=== PATIENT | male | born 1995 | race African-American/Black ===

== ENCOUNTER 2019-02-27 17:08 | Emergency (ER) | payer SELFPAY ==
--- OUTSIDE RECORDS SUMMARY | 2019-02-27 17:10 | XMS REPORT ---
:1995 [facility] Address [address] [place] [address] Care Team Providers Name Role Phone UNKNOWN, REFFERING Primary Care Provider Unavailable JOSELITO GAMEZ M.D. Unavailable Unavailable Problems This patient has no known problems. Allergies, Adverse Reactions, Alerts This patient has no known allergies or adverse reactions. Medications This patient has no known medications. Results Test Description Test Time Test Comments Text Results Atomic Results Result Comments Urinalysis Complete 2017-06-28 23:54:00 Test Item Value Reference Range Comments Color (test code=COLOR) Yellow Yellow,Straw,Pl yellow Clarity (test code=CLAR) Clear Clear Specific [place] (test code=SPGR) 1.026 1.001-1.035 pH (test code=PH) 5.0 5.0-9.0 Ketone (test code=KET) 5 mg/dL Negative Glucose (test code=GLUCUR) Negative mg/dL Negative Protein (test code=PROT) Negative mg/dL Negative Bilirubin (test code=BILI) Negative mg/dL Negative Occult Blood (test code=UDOB) Mod to Large Negative Urobilinogen (test code=UROB) 0.2 mg/dL 0.2-1.0 Nitrite (test code=NIT) Negative Negative Leuk Esterase (test code=LEUK) Negative Negative Micros Exam (test code=MEXAM) Indicated Epithelial Cells (test code=EPI) None /LPF 0-30 WBC, Urine (test code=UWBC) 0-1 /HPF 0-5 RBC, Urine (test code=URBC) 0-3 /HPF 0-5 Bacteria (test code=BACT) None /HPF [id number] 23:52:00 Test Item Value Reference Range Comments Amphetamine (test code=AMPH) POSITIVE Negative For diagnostic purposes only, positive results should always be assessedin conjunctionwith the patient's medical history,clinical examination and otherfindings.To fulfill legal requirements, a more specific alternate chemical methodmust be used inorder to obtain a Confirmed analytical result. GC/MS is the preferred confirmatory method. Barbiturates (test code=DELMER) Negative Negative Benzodiazepine (test Negative Negative code=VALENTINO) Cocaine (test code=COCA) POSITIVE Negative Methadone (test code=MTHD) Negative Negative Opiates (test code=OPIA) Negative Negative PCP (test code=PCP) Negative Negative Propoxyphene (test Negative Negative code=PROPOX) THC (test code=THC) POSITIVE Negative Alcohol, Urine (test <0.01 g/dL 0.00-0.01 code=ETOHU) Comprehensive Metabolic [id number] 23:52:00 Test Item Value Reference Range Comments Sodium (test code=NA) 142 mmol/L 135-145 Potassium (test code=K) 4.2 mmol/L 3.5-5.1 Chloride (test code=CL) 105 mmol/L 98-105 Carbon Dioxide (test 25 mmol/L 22-29 code=CO2) Glucose (test code=GLU) 100 mg/dL 70-115 Blood Urea Nitrogen 15 mg/dL 6-20 (test code=BUN) Creatinine (test 1.1 mg/dL 0.7-1.2 code=CREAT) Calcium (test code=CA) 9.6 mg/dL 8.3-10.5 Prot Total (test 6.7 g/dL 6.4-8.3 code=TP) Albumin (test code=ALB) 4.5 g/dL 3.5-5.2 A/G Ratio (test 2.0 Ratio code=AGRATIO) Globulin (test 2.2 2.9-3.1 code=GLOB) Bili Total (test 0.2 mg/dL 0.1-0.9 code=TBIL) Alk Phos (test 52 U/L 40-129 code=APHOS) AST (test code=AST) 32 U/L 1-40 ALT (test code=ALT) 20 U/L 1-41 BUN/Creatinine Ratio 13.6 (test code=BCRATIO) Anion Gap (test 12 mmol/L 7-16 code=AGAP) Estimated GFR (test >60 mL/min/1.73m2 eGFR (estimated Glomerular code=GFR) Filtration Rate) is an estimated value,calculated from the patient's serum creatinine using the MDRD equation.It is NOT the patient's actual GFR. The eGFR provides a more clinicallyuseful measure of kidney disease than serum creatinine alone.This calculation takes sex and race into account, if the informationis provided. If the race is not provided, and the patient isAfrican-Georgian, multiply by 1.212. If sex is not provided, and thepatient is female, multiply by 0.742. Results for patients <18 years ofage have not been validated by the MDRD study and should be interpretedwith caution.eGFR Result Interpretation:eGFR > or=60 is in the Normal RangeeGFR < 60 may mean kidney diseaseeGFR < 15 may mean kidney failureRanges recommended by the National Kidney Foundation,http://nkdep.nih .gov CBC with [id number] 23:40:00 Test Item Value Reference Range Comments WBC (test code=WBC) 9.4 K/cumm 4.4-10.5 RBC (test code=RBC) 4.66 M/cumm 4.10-5.70 Hemoglobin (test code=HGB) 14.6 gm/dL 13.4-17.4 Hematocrit (test code=HCT) 44.2 % 38.7-52.0 MCV (test code=MCV) 94.8 fL 80-100 MCH (test code=MCH) 31.4 pg 27.0-32.5 MCHC (test code=MCHC) 33.1 g/dL 32.0-37.5 RDW (test code=RDW) 12.1 % 11.5-14.5 Platelet Count (test code=PLTCT) 303 K/cumm 140-440 MPV (test code=MPV) 7.4 fL Diff Method (test code=DIFFM) Auto Neutrophil (test code=NEUT) 54.8 % 36-70 Lymphocyte (test code=LYMPH) 35.6 % 12-44 Monocyte (test code=MONO) 7.1 % 0-11 Eosinophil (test code=EOS) 2.2 % 0-7 Basophil (test code=BASO) 0.4 % 0-2 Neutro Abs (test code=ANEUT) 5.1 K/cumm 1.6-7.4 Lymph Abs (test code=ALYMPH) 3.3 K/cumm 0.5-4.6 [place] Abs (test code=AMONO) 0.7 K/cumm 0.0-1.2 Eos Abs (test code=AEOS) 0.20 K/cumm 0.00-0.74 Baso Abs (test code=ABASO) 0.0 K/cumm 0.00-0.21
--- NOTE | 2019-02-27 19:11 | ER ---
Nurse's Notes [facility] Name: Sal Davies Age: 23 yrs Sex: Male : 1995 Arrival Date: 02/27/2019 Time: 17:10 Bed DIS1 Private MD: Diagnosis: Influenza due to certain identified influenza viruses Presentation: 02/27 17:14 Presenting complaint: Patient states: Flu like symptoms for 4 days. Care prior to aj arrival: None. 17:14 Acuity: ASHLEIGH 4 aj 18:42 Transition of care: patient was not received from another setting of care. Onset of aj1 symptoms was February 2019. Risk Assessment: Do you want to hurt yourself or someone else? Patient reports no desire to harm self or others. Initial Sepsis Screen: Does the patient meet any 2 criteria? HR > 90 bpm. No. Patient's initial sepsis screen is negative. Does the patient have a suspected source of infection? Yes: Productive cough/pneumonia. 18:42 Method Of Arrival: Ambulatory aj1 Triage Assessment: 17:14 General: Appears in no apparent distress. comfortable, Behavior is calm, cooperative, aj appropriate for age. Pain: Denies pain. EENT: Reports nasal congestion nasal discharge. Respiratory: Reports cough that is. Historical: - Allergies: 17:14 No Known Allergies; aj - Immunization history:: Adult Immunizations up to date. - Social history:: Smoking status: Patient/guardian denies using tobacco. - Ebola Screening: : Patient denies travel to an Ebola-affected area in the 21 days before illness onset. Screenin:08 Abuse screen: Denies threats or abuse. Denies injuries from another. Nutritional aj1 screening: No deficits noted. Tuberculosis screening: No symptoms or risk factors identified. 19:29 Fall Risk None identified. ca1 Assessment: 18:08 General: Appears in no apparent distress. comfortable, Behavior is calm, cooperative, aj1 appropriate for age. Pain: Complains of pain in chest. Neuro: Level of Consciousness is awake, alert, obeys commands, Oriented to person, place, time, situation. Cardiovascular: Reports chest pain with cough Patient's skin is warm and dry. Respiratory: Reports cough that is productive, Airway is patent Respiratory effort is even, unlabored, Respiratory pattern is regular, symmetrical, Breath sounds are clear bilaterally. GI: No signs and/or symptoms were reported involving the gastrointestinal system. : No signs and/or symptoms were reported regarding the genitourinary system. EENT: Reports nasal congestion nasal discharge sore throat. Derm: Skin is pink, warm \T\ dry. normal. Musculoskeletal: No signs and/or symptoms reported regarding the musculoskeletal system. Circulation, motion, and sensation intact. 19:28 Reassessment: Patient appears in no apparent distress at this time. Patient is alert, ca1 oriented x 3, equal unlabored respirations, skin warm/dry/pink. Vital Signs: 17:14 BP 128 / 70; Pulse 96; Resp 19; Temp 97.8; Pulse Ox 98% on R/A; Weight 86.18 kg; Height aj 5 ft. 5 in. (165.10 cm); 18:08 BP 127 / 68; Pulse 102; Resp 18; Pulse Ox 99% on R/A; aj1 19:28 BP 126 / 65; Pulse 94; Resp 16 S; Temp 98.1(O); Pulse Ox 99% on R/A; ca1 17:14 Body Mass Index 31.62 (86.18 kg, 165.10 cm) ED Course: 17:10 Patient arrived in ED. as 17:14 Triage completed. aj 17:14 Arm band placed on left wrist. Patient placed in waiting room. 17:46 Dewey Seo PA is PHCP. [facility] 17:46 Martinez Goodwin MD is Attending Physician. [facility] 18:08 Alesia Olguin, RN is Primary Nurse. [facility] 18:08 Patient has correct armband on for positive identification. Bed in low position. Call [facility] light in reach. Side rails up X 1. 18:08 No provider procedures requiring assistance completed. aj1 18:37 Flu and/or RSV swab sent to lab. Strep swab sent to lab. lt1 18:37 Flu Sent. lt1 18:37 Strep Sent. lt1 19:29 Patient did not have IV access during this emergency room visit. ca1 Administered Medications: No medications were administered Outcome: 19:11 Discharge ordered by . [facility] 19:29 Discharged to home ambulatory, with significant other. ca1 19:29 Condition: stable 19:29 Discharge instructions given to patient, Instructed on discharge instructions, follow up and referral plans. medication usage. 19:29 Demonstrated understanding of instructions, follow-up care, medications, Prescriptions given X 1. 19:29 Patient left the ED. ca1 Signatures: Alesia Olguin RN RN aj1 Cindy Maher RN RN aj Dewey Seo PA PA jmm Martinez, Amelia as Acob, Cheryl RN RN ca1 Chantell, Meagan lt1
--- NOTE | 2019-02-27 19:12 | EDPHYS ---
Physician Documentation [facility] Name: Sal Davies Age: 23 yrs Sex: Male : 1995 Arrival Date: 02/27/2019 Time: 17:10 Bed DIS1 Private MD: ED Physician Martinez Goodwin HPI: 02/27 17:54 This 23 yrs old Black Male presents to ER via Ambulatory with complaints of Flu jmm Symptoms. 17:54 The patient or guardian reports cough. Onset: The symptoms/episode began/occurred jmm gradually, 2 day(s) ago. Modifying factors: The symptoms are alleviated by nothing. the symptoms are aggravated by nothing. Associated signs and symptoms: Pertinent positives: fever, sore throat, Pertinent negatives: chest pain, diarrhea, ear ache, nausea, vomiting. Historical: - Allergies: 17:14 No Known Allergies; aj - Immunization history:: Adult Immunizations up to date. - Social history:: Smoking status: Patient/guardian denies using tobacco. - Ebola Screening: : Patient denies travel to an Ebola-affected area in the 21 days before illness onset. ROS: 17:54 Constitutional: Positive for fever. jmm 17:54 ENT: Positive for sore throat. 17:54 Respiratory: Positive for cough. 17:54 All other systems are negative. Exam: 17:54 Constitutional: This is a well developed, well nourished patient who is awake, alert, jmm and in no acute distress. Head/Face: atraumatic. Eyes: EOMI, no conjunctival erythema appreciated 17:54 Chest/axilla: Normal chest wall appearance and motion. 17:54 ENT: TM's: are normal, Posterior pharynx: erythema, that is mild. 17:54 Cardiovascular: Rate: normal, Rhythm: regular. 17:54 Respiratory: the patient does not display signs of respiratory distress, Respirations: normal, Breath sounds: are clear throughout. 17:54 Abdomen/GI: Inspection: abdomen appears normal, Bowel sounds: normal, Palpation: abdomen is soft and non-tender, in all quadrants. 17:54 Back: pain, is absent. 17:54 Musculoskeletal/extremity: ROM: no acute changes. 17:54 Skin: Appearance: Color: normal in color. 17:54 Neuro: Orientation: is normal, Mentation: is normal, Memory: is normal. 17:54 Psych: Behavior/mood is pleasant, cooperative. Vital Signs: 17:14 BP 128 / 70; Pulse 96; Resp 19; Temp 97.8; Pulse Ox 98% on R/A; Weight 86.18 kg; Height aj 5 ft. 5 in. (165.10 cm); 18:08 BP 127 / 68; Pulse 102; Resp 18; Pulse Ox 99% on R/A; aj1 19:28 BP 126 / 65; Pulse 94; Resp 16 S; Temp 98.1(O); Pulse Ox 99% on R/A; ca1 17:14 Body Mass Index 31.62 (86.18 kg, 165.10 cm) aj MDM: 17:54 Patient medically screened. [facility] 19:09 Data reviewed: vital signs, nurses notes. Counseling: I had a detailed discussion with betty the patient and/or guardian regarding: the historical points, exam findings, and any diagnostic results supporting the discharge/admit diagnosis, lab results, the need for outpatient follow up, to return to the emergency department if symptoms worsen or persist or if there are any questions or concerns that arise at home. ED course: Patient is alert and non toxic in appearance in the ED. Patient is advised to follow up with pcp and otherwise given strict return precautions. Patient understood and agrees with the plan of care. . 02/27 18:02 Order name: Strep; Complete Time: 19:09 [facility] 02/27 18:02 Order name: Flu; Complete Time: 19:09 [facility] 02/27 19:07 Order name: Throat Culture EDMS Administered Medications: No medications were administered Disposition: 02/28 07:23 Co-signature as Attending Physician, Martinez Goodwin MD I agree with the assessment and kdr plan of care. Disposition: 02/27/19 19:11 Discharged to Home. Impression: Influenza due to certain identified influenza viruses. - Condition is Stable. - Discharge Instructions: Influenza, Adult. - Prescriptions for Tamiflu 75 mg Oral Capsule - take 1 tablet by ORAL route every 12 hours for 5 days; 10 tablet. - Medication Reconciliation Form, Thank You Letter, Antibiotic Education, Prescription Opioid Use, Work release form form. - Follow up: Private Physician; When: 1 - 2 days; Reason: Recheck today's complaints, Continuance of care, Re-evaluation by your physician. Signatures: Dispatcher [employer] EDAlesia Barrett RN RN aj1 Cindy Maher RN RN aj Martinez Goodwin MD MD kdr Mickail, Joel, PA PA jmm Acob, Cheryl, RN RN ca1 Corrections: (The following items were deleted from the chart) 02/27 19:29 19:11 02/27/2019 19:11 Discharged to Home. Impression: Influenza due to certain ca1 identified influenza viruses. Condition is Stable. Forms are Medication Reconciliation Form, Thank You Letter, Antibiotic Education, Prescription Opioid Use. Follow up: Private Physician; When: 1 - 2 days; Reason: Recheck today's complaints, Continuance of care, Re-evaluation by your physician. huong
[2019-02-27 21:26] VITALS: O2SAT 99
[2019-02-27 21:27] VITALS: BP 126/65; TEMP 98.1
== END 2019-02-27 19:29 | disposition home or self-care (01) ==
LOC: ER 17:08
DX: J10.1 Influenza due to other identified influenza virus with other respiratory manifestations (principal)
CPT/HCPCS: 87070; 87081; 87804; 99283

== ENCOUNTER 2019-04-23 15:32 | Emergency (ER) | payer SELFPAY ==
--- OUTSIDE RECORDS SUMMARY | 2019-04-23 15:35 | XMS REPORT ---
:1995 [facility] Address [address] [place] [address] Care Team Providers Name Role Phone UNKNOWN, [...] yellow Clarity (test code=CLAR) Clear Clear Specific [place] (test code=SPGR) 1.026 1.001-1.035 pH (test code=PH) [...] /HPF 0-5 Bacteria (test code=BACT) None /HPF [id number] 23:52:00 Test Item Value Reference Range Comments [...] (test <0.01 g/dL 0.00-0.01 code=ETOHU) Comprehensive Metabolic [id number] 23:52:00 Test Item Value Reference Range Comments [...] race is not provided, and the patient isAfrican-[place] Helenian, multiply by 1.212. If sex is not [...] the National Kidney Foundation,http://nkdep.nih .gov CBC with [id number] 23:40:00 Test Item Value Reference Range Comments [...] Lymph Abs (test code=ALYMPH) 3.3 K/cumm 0.5-4.6 [place] Abs (test code=AMONO) 0.7 K/cumm 0.0-1.2 Eos Abs (test code=AEOS) 0.20 K/cumm 0.00-0.74 Baso Abs (test code=ABASO) 0.0 K/cumm 0.00-0.21
[2019-04-23 16:00] LABS: Basophils % 0.6 % (0-1.3); Hematocrit 40.3 % (39.6-49.0); Lymphocytes % 25.7 % (15.3-44.8); MPV 7.7 fL (7.6-11.3); RBC Red Blood Cell Count 4.53 M/uL (4.33-5.43)
[2019-04-23 16:04] LABS: Protime INR 1.23
[2019-04-23 16:23] LABS: ALT/SGPT 31 U/L (12-78); AST/SGOT 20 U/L (15-37); Albumin 4.2 g/dL (3.4-5.0); Alkaline Phosphatase 56 U/L (45-117); BUN Blood Urea Nitrogen 16 mg/dL (7-18); Bicarbonate 25 mmol/L (21-32); Bilirubin Direct 0.2 mg/dL (0-0.2); Bilirubin Total 0.9 mg/dL (0.2-1.0); Glucose Level 91 mg/dL (74-106); Potassium 3.6 mmol/L (3.5-5.1); Protein, Total 7.6 g/dL (6.4-8.2); Sodium Level 143 mmol/L (136-145)
[2019-04-23 17:01] LABS: Troponin I < 0.02 ng/mL (0.0-0.045)
[2019-04-23 17:27] LABS: Barbiturates NEGATIVE (NEGATIVE); Benzodiazepines NEGATIVE (NEGATIVE); Cocaine POSITIVE (NEGATIVE); METHAMPHETAM POSITIVE (NEGATIVE); Methadone NEGATIVE (NEGATIVE); Opiates NEGATIVE (NEGATIVE); Phencyclidine NEGATIVE (NEGATIVE); THC Cannibis NEGATIVE (NEGATIVE)
[2019-04-23 20:07] LABS: Urine Blood 2+ (NEG); Urine Glucose NEGATIVE (NEG); Urine Protein 1+ (NEG); Urine Specific Gravity >1.030 (1.005-1.030)
--- NOTE | 2019-04-24 09:50 | EKG ---
Test Date: 2019-04-23 Test Time: 16:00:52 Network Systems Analyst: HONG MEASUREMENT RESULTS: Intervals: Rate: 77 TN: 150 QRSD: 92 QT: 374 QTc: 423 Avant: P: 23 TN: 150 QRS: 43 T: 17 INTERPRETIVE STATEMENTS: Normal sinus rhythm with sinus arrhythmia Minimal voltage criteria for LVH, may be normal variant Early repolarization Borderline ECG Compared to ECG 03/29/2017 17:02:20 Left ventricular hypertrophy now present Sinus tachycardia no longer present Electronically Signed On 04-24-19 09:50:16 CDT by Ryan Villa
--- NOTE | 2019-04-24 14:29 | EDPHYS ---
Physician Documentation [facility] Name: Sal Davies Age: 23 yrs Sex: Male : 1995 Arrival Date: 04/23/2019 Time: 15:41 Bed 17 Private MD: ED Physician Quoc Hopkins HPI: 04/23 16:00 This 23 yrs old Black Male presents to ER via EMS with complaints of Suicidal Ideation. cp 16:00 The patient presents to the emergency department with suicide ideation. Onset: The cp symptoms/episode began/occurred gradually. Past psychiatric history: Prior diagnosis: depression, Psychiatric medications include: none, the patient has had a prior suicide gesture, the patient has a previous inpatient psychiatric history, last year. Associated signs and symptoms: Pertinent positives; depression, substance abuse, suicide ideation, Pertinent negatives: abdominal pain, chest pain, delusions, fever, hallucinations, headache, palpitations, paranoia. Severity of symptoms: in the emergency department the symptoms are unchanged despite home interventions. Patient admits to using cocaine 2 days ago. Historical: - Allergies: 15:48 No Known Allergies; sv - PMHx: 15:48 Anxiety; Depression; sv - PSHx: 15:48 Appendectomy; sv - Immunization history:: Adult Immunizations up to date. - Social history:: Smoking status: Patient/guardian denies using tobacco, Patient uses alcohol, occasionally. street drugs, cocaine. - Ebola Screening: : No symptoms or risks identified at this time. ROS: 16:05 Constitutional: Negative for body aches, chills, fever, poor PO intake. cp 16:05 Eyes: Negative for injury, pain, redness, and discharge. cp 16:05 ENT: Negative for drainage from ear(s), ear pain, sore throat, difficulty swallowing, difficulty handling secretions. 16:05 Cardiovascular: Negative for chest pain, edema, palpitations. 16:05 Respiratory: Negative for shortness of breath, wheezing. 16:05 Abdomen/GI: Negative for abdominal pain, vomiting, diarrhea, constipation. 16:05 Back: Negative for pain at rest, pain with movement. 16:05 : Negative for urinary symptoms, hematuria, testicular pain 16:05 Neuro: Negative for altered mental status, dizziness, headache, weakness. 16:05 Psych: Positive for depression, suicidal ideation, Negative for auditory hallucinations, visual hallucinations, homicidal ideation. 16:05 All other systems are negative. Exam: 16:03 ECG was reviewed by the Attending Physician. cp 16:15 Constitutional: The patient appears in no acute distress, alert, awake, cp non-diaphoretic, non-toxic, well developed, well nourished. 16:15 Head/Face: Normocephalic, atraumatic. cp 16:15 Eyes: Periorbital structures: appear normal, Conjunctiva: normal, no exudate, no injection, Lids and lashes: appear normal, bilaterally. 16:15 ENT: External ear(s): are unremarkable, Nose: is normal, Mouth: is normal, Posterior pharynx: Airway: no evidence of obstruction, patent. 16:15 Neck: ROM/movement: is normal, is supple, without pain, no range of motions limitations, no nuchal rigidity. 16:15 Chest/axilla: Inspection: normal, Palpation: is normal, no crepitus, no tenderness. 16:15 Cardiovascular: Rate: normal, Rhythm: regular, Edema: is not appreciated, JVD: is not appreciated. 16:15 Respiratory: the patient does not display signs of respiratory distress, Respirations: normal, no use of accessory muscles, no retractions, no splinting, no tachypnea, labored breathing, is not present, Breath sounds: are clear throughout, no decreased breath sounds, no stridor, no wheezing. 16:15 Abdomen/GI: Inspection: abdomen appears normal, Palpation: abdomen is soft and non-tender, in all quadrants. 16:15 Skin: no rash present. 16:15 Neuro: Orientation: to person, place \T\ time. Mentation: is normal, Motor: moves all fours, strength is normal. 16:15 Psych: Behavior/mood is cooperative, Affect is calm, Patient having thoughts of suicide. Judgement / Insight is normal. Vital Signs: 15:40 BP 141 / 100; Pulse 91; Resp 18; Temp 98.8(O); Pulse Ox 100% ; Weight 86.18 kg; Height sv 5 ft. 5 in. (165.10 cm); Pain 0/10; 18:12 BP 137 / 92; Pulse 93; Resp 16; Pulse Ox 100% on R/A; Pain 0/10; em1 20:00 BP 121 / 68; Pulse 99; Resp 18; Temp 97.9; Pulse Ox 99% on R/A; hb1 04/24 00:02 BP 121 / 72; Pulse 68; Resp 18; Temp 97.8; Pulse Ox 99% on R/A; Pain 0/10; hb1 04:02 BP 120 / 79; Pulse 79; Resp 18; Temp 97.8; Pulse Ox 99% on R/A; Pain 0/10; hb1 08:00 BP 155 / 77; Pulse 74; Resp 16; Pulse Ox 98% ; bp 12:00 BP 114 / 69; Pulse 82; Resp 16; Pulse Ox 100% ; bp 04/23 15:40 Body Mass Index 31.62 (86.18 kg, 165.10 cm) sv MDM: 04/22 16:00 Differential diagnosis: drug withdrawal. depression, psychosis secondary to cp non-compliance. 04/23 15:44 Patient medically screened. snw 17:19 Data reviewed: vital signs, nurses notes, lab test result(s), EKG. Test interpretation: cp by ED physician or midlevel provider: ECG. 17:36 ED course: Dinner tray ordered. [facility] called for evaluation. Pt alert, awake, snw cooperative. 20:26 Special discussion:. ED course: [facility] evaluated pt and believes in-patient snw treatment would be best for pt at this time. 21:32 Counseling: I had a detailed discussion with the patient and/or guardian regarding: the snw historical points, exam findings, and any diagnostic results supporting the discharge/admit diagnosis, lab results, the need to transfer to another facility, [facility] does not immediately have the required specialist. 04/24 03:10 Transition of care: After a detail discussion of the patient's case, care is snw transferred to Aaron Roberts MD. 07:54 ED course: VSS. Patient sleeping in exam room. cp 04/23 15:46 Order name: Acetaminophen; Complete Time: 17: sv 04/23 15:46 Order name: Basic Metabolic Panel; Complete Time: 17: sv 04/23 17:07 Interpretation: Normal except: CL 110; GFR 87. cp 04/23 15:46 Order name: CBC with Diff; Complete Time: 17:06 sv 04/23 17:07 Interpretation: Normal except: MCV 88.9. cp 04/23 15:46 Order name: ETOH Level; Complete Time: 17:06 sv 04/23 17:07 Interpretation: Reviewed. cp 04/23 15:46 Order name: Hepatic Function; Complete Time: 17:06 sv 04/23 15:46 Order name: PT-INR; Complete Time: 17:06 sv 04/23 17:07 Interpretation: Reviewed. cp 04/23 15:46 Order name: Ptt, Activated; Complete Time: 17:06 sv 04/23 15:46 Order name: Salicylate; Complete Time: 17:06 sv 04/23 15:46 Order name: Urine Drug Screen; Complete Time: 17:38 sv 04/23 15:46 Order name: EKG; Complete Time: 15:48 sv 04/23 16:27 Order name: LAB Add On cp 04/23 16:44 Order name: Troponin I; Complete Time: 17:06 EDMS 04/23 17:07 Interpretation: TROP < 0.02; Reviewed. cp 04/23 17:02 Order name: Urine Dipstick--Ancillary (enter results); Complete Time: 20:09 bd 04/23 15:46 Order name: EKG - Nurse/Tech; Complete Time: 16:15 sv 04/23 15:46 Order name: IV Saline Lock; Complete Time: 15:47 sv 04/23 15:46 Order name: Labs collected and sent; Complete Time: 15:47 sv 04/23 15:46 Order name: Urine Dipstick-Ancillary (obtain specimen); Complete Time: 17:02 sv 04/23 16:56 Order name: Diet Finger Food; Complete Time: 16:56 em1 04/23 17:24 Order name: Diet Finger Food; Complete Time: 17:25 bd 04/24 07:05 Order name: Diet Finger Food; Complete Time: 07:06 bd 04/24 11:18 Order name: Diet Finger Food; Complete Time: 11:18 bd EC/13 16:03 Rate is 77 beats/min. Rhythm is regular. MN interval is normal. QRS interval is normal. cp QT interval is normal. T waves are Inverted in lead III. Interpreted by me. Reviewed by me. Administered Medications: No medications were administered Disposition: 04/24/19 14:28 Transfer ordered to [facility]. Diagnosis is Suicidal ideations. - Reason for transfer: Higher level of care. - Accepting physician is DR Gregorio. - Condition is Stable. - Problem is new. - Symptoms have improved. Signatures: Dispatcher [employer] EDAZ Kelly Casillas, RN RN Breana Mckeon, JOAN-C FENCE LABORER-Pankajw Jignesh Camp PA PA cp Peltier, Brian, RN RN bp Corrections: (The following items were deleted from the chart) 18:38 16:27 TROPONIN I+C.LAB.BRZ ordered. [facility] 04/24 16:27 14:28 04/24/2019 14:28 Transfer ordered to Psych Facility. Diagnosis is Suicidal bp ideations. Reason for transfer: Higher level of care. Accepting physician is DR Gregorio. Condition is Stable. Problem is new. Symptoms have improved. cp
--- NOTE | 2019-04-24 14:29 | ER ---
Nurse's Notes [facility] Name: Sal Davies Age: 23 yrs Sex: Male : 1995 Arrival Date: 04/23/2019 Time: 15:41 Bed 17 Private MD: Diagnosis: Suicidal ideations Presentation: 04/23 15:31 Transition of care: patient was not received from another setting of care. Onset of sv symptoms was April 23, 2019. Risk Assessment: Do you want to hurt yourself or someone else? Patient reports desire/thoughts of hurting themselves or someone else. Provider notified. Initial Sepsis Screen: Does the patient meet any 2 criteria? No. Patient's initial sepsis screen is negative. Does the patient have a suspected source of infection? No. Patient's initial sepsis screen is negative. Care prior to arrival: IV initiated. 20 GA, in the right antecubital area. 15:31 Acuity: ASHLEIGH 2 sv 15:31 Method Of Arrival: EMS: [facility] sv 15:31 Presenting complaint: EMS states: found by [employer] after being tipped off from someone the sv pt knows that didn't feel right. Pt answered the door to PD with a plastic bag over his head. Pt stated earlier today he attempted to tie the plastic bag with a cord to prevent air from coming in the bag. Pt also reports he made a mixture of bleach and raid mixture to drink but decided not to do it because the mixture had gotten hot. Denies LOC. Slight ligature enoc noted to anterior neck. BP 134/70 HR-80 100% RA. Triage Assessment: 15:35 General: Appears in no apparent distress. comfortable, well developed, Behavior is sv cooperative, crying. Pain: Denies pain. Neuro: Level of Consciousness is awake, alert, obeys commands, Oriented to person, place, time, situation, Moves all extremities. Full function Gait is steady, Speech is normal. Cardiovascular: Patient's skin is warm and dry. Respiratory: Airway is patent Respiratory effort is even, unlabored, Respiratory pattern is regular, symmetrical. Derm: Skin is pink, warm \T\ dry. ligature enoc noted to anterior neck. Musculoskeletal: Range of motion: intact in all extremities. Historical: - Allergies: 15:48 No Known Allergies; sv - PMHx: 15:48 Anxiety; Depression; sv - PSHx: 15:48 Appendectomy; sv - Immunization history:: Adult Immunizations up to date. - Social history:: Smoking status: Patient/guardian denies using tobacco, Patient uses alcohol, occasionally. street drugs, cocaine. - Ebola Screening: : No symptoms or risks identified at this time. Screenin:20 Abuse screen: Denies threats or abuse. Denies injuries from another. Nutritional sv screening: No deficits noted. Tuberculosis screening: No symptoms or risk factors identified. Fall Risk None identified. Assessment: 15:44 Reassessment: Personal Valuables Admission checklist completed and placed on chart: ss Black pants, Mims shirt, black and blue Jordans (shoes) and black watch placed in belonging bag and given to security. 16:30 Reassessment: Patient appears in no apparent distress at this time. No changes from sv previously documented assessment. Patient and/or family updated on plan of care and expected duration. Pain level reassessed. Patient is alert, oriented x 3, equal unlabored respirations, skin warm/dry/pink. 17:30 Reassessment: Patient appears in no apparent distress at this time. No changes from sv previously documented assessment. Patient and/or family updated on plan of care and expected duration. Pain level reassessed. Patient is alert, oriented x 3, equal unlabored respirations, skin warm/dry/pink. 18:30 Reassessment: Patient appears in no apparent distress at this time. No changes from sv previously documented assessment. Patient and/or family updated on plan of care and expected duration. Pain level reassessed. Patient is alert, oriented x 3, equal unlabored respirations, skin warm/dry/pink. 19:00 General: Appears comfortable, Behavior is calm, cooperative. Pain: Denies pain. Neuro: tr5 Level of Consciousness is awake, alert, Oriented to person, place, time, Furnace Repair Mechanic are equal bilaterally Moves all extremities. Cardiovascular: Heart tones present Bruits absent Capillary refill < 3 seconds Pulses are all present. Edema is absent. Respiratory: Airway is patent Respiratory effort is even, unlabored. Derm: Skin is intact, Skin temperature is warm. Musculoskeletal: Capillary refill < 3 seconds, Range of motion: intact in all extremities. 19:08 Reassessment: [facility] at bedside with patient. tr5 22:00 Reassessment: Patient appears in no apparent distress at this time. Patient and/or tr5 family updated on plan of care and expected duration. Pain level reassessed. Patient is alert, oriented x 3, equal unlabored respirations, skin warm/dry/pink. 22:00 Reassessment: Patient and/or family updated on plan of care and expected duration. Pain tr5 level reassessed. Patient is alert, oriented x 3, equal unlabored respirations, skin warm/dry/pink. Pt appears to be sleeping in bed. 04/24 00:00 Reassessment: Patient is alert, oriented x 3, equal unlabored respirations, skin tr5 warm/dry/pink. 02:10 Reassessment: Patient appears in no apparent distress at this time. Patient and/or tr5 family updated on plan of care and expected duration. Pain level reassessed. Patient is alert, oriented x 3, equal unlabored respirations, skin warm/dry/pink. 04:00 Reassessment: Pt appears to be sleeping in bed. tr5 07:00 Reassessment: RECD REPORT FROM RADHA MAYA. 23YO BM P/W SI, H/O PSYCH D/O. [facility] bp RECOMMENDING INPATIENT TRANSFER, BUT NO BEDS AVAILABLE AT THIS TIME. 08:00 Reassessment: PT PROVIDED BREAKFAST. VS STABLE. NO BEDS AVAILABLE FOR TRANSFER. bp 12:00 Reassessment: PT EATING LUNCH. bp 13:26 Reassessment: REPORT TO CHICO MAYA AT [facility]. bp 16:10 Reassessment: [facility] AT / FOR TRANSPORT. bp Psych: 04/23 15:35 Subjective: Patient's mood is sad, hopeless, Delusions are denied, Hallucinations are sv denied Having thoughts of suicide. Plan for suicide is place the plastic bag over his head as stated in triage note. Objective: Patient is cooperative, Speech is soft, Affect is appropriate. Interventions: Removed personal items and placed in bag. Patient placed in hospital gown. Searched person for dangerous items. Belonging list filled out. Patient reassessed during use of restraints. Patient is physically safe. Patient's cardiac status is stable. Patient's respirations are even and unlabored. Patient has good circulation in all extremities as indicated by capillary refill < 3 seconds. Patient's ROM assessed and is intact. Patient nutrition and hydration needs will continue to be monitored and addressed. Patient hygiene and elimination needs met. Patient assessed for signs of distress. Patient remains reasonably comfortable at this time. Assisted patient in de-escalation of behavior by removing stimuli causing behavior where possible. Suicide Risk Assessment: Sad Person Scale: Sex of patient: Male: Score 1 point. Age of patient: Score 1 point if patient 15-34. Depression: Score 1 point if signs of depression are present. Previous Attempt: Score 1 point if patient has previously attempted suicide. Substance Abuse: Score 1 point if patient abuses alcohol or drugs. Rational Thinking: Score 0 point if patient has rational thinking. Social Support: Score 0 if social support is present/available. Organized Plan: Score 1 point if patient had a plan in place. Relationship: Score 0 point if patient has a spouse or domestic partner. Chronic Sickness: Score 1 point if patient has illness, chronic, debilitating, or severe. TOTAL POINTS: If total points are 7-10, the proposed clinical action is to hospitalize or commit. Implement suicide precautions. Safety Checks: Personal items have been removed. Door is open. No visitors are present at this time. Patient uses occassionally Patient uses cocaine, Last use was 2 days ago. Commitment: Patient will be a voluntary commitment. Vital Signs: 15:40 BP 141 / 100; Pulse 91; Resp 18; Temp 98.8(O); Pulse Ox 100% ; Weight 86.18 kg; Height sv 5 ft. 5 in. (165.10 cm); Pain 0/10; 18:12 BP 137 / 92; Pulse 93; Resp 16; Pulse Ox 100% on R/A; Pain 0/10; em1 20:00 BP 121 / 68; Pulse 99; Resp 18; Temp 97.9; Pulse Ox 99% on R/A; hb1 08/14 00:02 BP 121 / 72; Pulse 68; Resp 18; Temp 97.8; Pulse Ox 99% on R/A; Pain 0/10; hb1 04:02 BP 120 / 79; Pulse 79; Resp 18; Temp 97.8; Pulse Ox 99% on R/A; Pain 0/10; hb1 08:00 BP 155 / 77; Pulse 74; Resp 16; Pulse Ox 98% ; bp 12:00 BP 114 / 69; Pulse 82; Resp 16; Pulse Ox 100% ; bp 08/13 15:40 Body Mass Index 31.62 (86.18 kg, 165.10 cm) sv ED Course: 04/23 15:31 Arm band placed on Patient placed in an exam room, on a stretcher. sv 15:31 Maintain EMS IV. Dressing intact. Good blood return noted. Site clean \T\ dry. Gauge \T\ sv site: 20G R AC. 15:35 Patient has correct armband on for positive identification. Placed in gown. Bed in low sv position. Call light in reach. Door closed. Head of bed elevated. 15:40 Initial lab(s) drawn, by me, sent to lab. sv 15:41 Patient arrived in ED. em1 15:42 Safety checks: Items removed: yes. Door open/sign placed on door: yes. Family/friend em1 present: no. Sitter present: Yes. 15:44 Breana Irving FNP-C is PHCP. snw 15:44 Quoc Hopkins MD is Attending Physician. snw 15:45 Warm blanket given. PO fluids given. em1 15:45 Safety checks: Items removed: yes. Door open/sign placed on door: yes. Family/friend em1 present: no. Sitter present: Yes. 15:46 Kelly Casillas, FRANCESCO is Primary Nurse. sv 15:46 PHCP role handed off by Breana Irving FNP-C cp 15:46 Jignesh Camp PA is PHCP. 15:47 Triage completed. sv 16:00 Safety checks: Items removed: yes. Door open/sign placed on door: yes. Family/friend em1 present: no. Sitter present: Yes. 16:08 EKG done, by lead maintenance technician. reviewed by Jignesh WARD. at1 16:14 Awaiting lab results. sv 16:15 Safety checks: Items removed: yes. Door open/sign placed on door: yes. Family/friend em1 present: no. Sitter present: Yes. 16:28 LAB Add On Sent. sv 16:30 Safety checks: Items removed: yes. Door open/sign placed on door: yes. Family/friend em1 present: no. Sitter present: Yes. 16:45 Safety checks: Items removed: yes. Door open/sign placed on door: yes. Family/friend em1 present: no. Sitter present: Yes. 16:56 Troponin I Sent. sv 17:00 Safety checks: Items removed: yes. Door open/sign placed on door: yes. Family/friend em1 present: no. Sitter present: Yes. 17:03 Urine Dipstick--Ancillary (enter results) Sent. sv 17:15 Safety checks: Items removed: yes. Door open/sign placed on door: yes. Family/friend em1 present: no. Sitter present: Yes. 17:30 Safety checks: Items removed: yes. Door open/sign placed on door: yes. Family/friend em1 present: no. Sitter present: Yes. 17:36 PHCP role handed off by Jignesh Camp PA snw 17:36 Breana Irving FNP-C is PHCP. snw 17:45 Safety checks: Items removed: yes. Door open/sign placed on door: yes. Family/friend em1 present: no. Sitter present: Yes. 17:47 faxed chart to [facility], [facility], [facility] and [facility]. 17:50 notified [facility] to send a screener out to evaluate pt. 17:55 attempted transfer to [facility], pt denied due to not having any psych beds at this time. 17:58 Diet tray given. em1 18:00 Safety checks: Items removed: yes. Door open/sign placed on door: yes. Family/friend em1 present: no. Sitter present: Yes. 18:15 Safety checks: Items removed: yes. Door open/sign placed on door: yes. Family/friend em1 present: no. Sitter present: Yes. 18:30 Safety checks: Items removed: yes. Door open/sign placed on door: yes. Family/friend em1 present: no. Sitter present: Yes. 18:45 Safety checks: Items removed: yes. Door open/sign placed on door: yes. Family/friend em1 present: no. Sitter present: Yes. 19:00 Safety checks: Items removed: yes. Door open/sign placed on door: yes. Family/friend cm6 present: yes. Sitter present: Yes. [facility] [place] notified mental health deputy is in the room evaluating the patient. 19:08 Report given to Aaliyah RN and Radha RN. sv 19:17 Primary Nurse role handed off by Kelly Casillas RN sv 19:59 Safety Checks: Personal items have been removed. The door is open or patient has been hb1 placed in a hallway bed/chair. There are no family/friend visitors at this time Sitter present at this time. Other: pt is calm and comfortably laying on stretcher. 20:01 Safety Checks: Personal items have been removed. The door is open or patient has been hb1 placed in a hallway bed/chair. Sitter present at this time. 20:15 Safety Checks: Personal items have been removed. The door is open or patient has been hb1 placed in a hallway bed/chair. Sitter present at this time. 20:29 Safety Checks: Personal items have been removed. The door is open or patient has been hb1 placed in a hallway bed/chair. There are no family/friend visitors at this time Sitter present at this time. 20:45 Appears to be sleeping. Safety Checks: Personal items have been removed. The door is hb1 open or patient has been placed in a hallway bed/chair. There are no family/friend visitors at this time Sitter present at this time. 21:00 Safety Checks: Personal items have been removed. The door is open or patient has been hb1 placed in a hallway bed/chair. There are no family/friend visitors at this time Sitter present at this time. pt is sleeping. 21:15 Safety Checks: Personal items have been removed. The door is open or patient has been hb1 placed in a hallway bed/chair. There are no family/friend visitors at this time Sitter present at this time. 21:28 Safety Checks: Personal items have been removed. The door is open or patient has been hb1 placed in a hallway bed/chair. There are no family/friend visitors at this time Sitter present at this time. pt is sleeping. 22:00 Appears to be sleeping. Safety Checks: Personal items have been removed. The door is hb1 open or patient has been placed in a hallway bed/chair. There are no family/friend visitors at this time Sitter present at this time. 22:12 Radha Malhotra, RN is Primary Nurse. tr5 22:20 Appears to be sleeping. Safety Checks: Personal items have been removed. The door is hb1 open or patient has been placed in a hallway bed/chair. There are no family/friend visitors at this time Sitter present at this time. 22:33 Appears to be sleeping. Safety Checks: Personal items have been removed. The door is hb1 open or patient has been placed in a hallway bed/chair. There are no family/friend visitors at this time Sitter present at this time. 22:49 Safety Checks: Personal items have been removed. The door is open or patient has been hb1 placed in a hallway bed/chair. There are no family/friend visitors at this time Sitter present at this time. 23:01 Appears to be sleeping. Safety Checks: Personal items have been removed. The door is hb1 open or patient has been placed in a hallway bed/chair. There are no family/friend visitors at this time Sitter present at this time. 23:14 Appears to be sleeping. Safety Checks: Personal items have been removed. The door is hb1 open or patient has been placed in a hallway bed/chair. There are no family/friend visitors at this time Sitter present at this time. 23:29 Appears to be sleeping. Safety Checks: Personal items have been removed. The door is hb1 open or patient has been placed in a hallway bed/chair. There are no family/friend visitors at this time Sitter present at this time. 23:46 Appears to be sleeping. Safety Checks: Personal items have been removed. The door is hb1 open or patient has been placed in a hallway bed/chair. There are no family/friend visitors at this time Sitter present at this time. 04/24 00:01 Safety Checks: Personal items have been removed. The door is open or patient has been hb1 placed in a hallway bed/chair. There are no family/friend visitors at this time Sitter present at this time. Other: pt ate small piece of bread, then lay back for sleep. 00:15 Appears to be sleeping. Safety Checks: Personal items have been removed. The door is hb1 open or patient has been placed in a hallway bed/chair. There are no family/friend visitors at this time Sitter present at this time. 00:30 Safety Checks: Personal items have been removed. The door is open or patient has been hb1 placed in a hallway bed/chair. There are no family/friend visitors at this time Sitter present at this time. 00:43 No apparent distress. Appears to be sleeping. Safety Checks: Personal items have been hb1 removed. The door is open or patient has been placed in a hallway bed/chair. There are no family/friend visitors at this time Sitter present at this time. 00:59 Safety Checks: Personal items have been removed. The door is open or patient has been hb1 placed in a hallway bed/chair. There are no family/friend visitors at this time Sitter present at this time. 01:15 Appears to be sleeping. Safety Checks: Personal items have been removed. The door is hb1 open or patient has been placed in a hallway bed/chair. There are no family/friend visitors at this time Sitter present at this time. 01:29 Safety Checks: Personal items have been removed. The door is open or patient has been hb1 placed in a hallway bed/chair. There are no family/friend visitors at this time Sitter present at this time. 01:45 No apparent distress. Resting quietly. Appears to be sleeping. Safety Checks: Personal hb1 items have been removed. The door is open or patient has been placed in a hallway bed/chair. There are no family/friend visitors at this time Sitter present at this time. 02:00 No apparent distress. Appears to be sleeping. Safety Checks: Personal items have been hb1 removed. The door is open or patient has been placed in a hallway bed/chair. There are no family/friend visitors at this time Sitter present at this time. 02:16 Appears to be sleeping. Safety Checks: Personal items have been removed. The door is hb1 open or patient has been placed in a hallway bed/chair. There are no family/friend visitors at this time Sitter present at this time. 02:30 Safety Checks: Personal items have been removed. The door is open or patient has been hb1 placed in a hallway bed/chair. There are no family/friend visitors at this time Sitter present at this time. 02:45 Safety Checks: Personal items have been removed. The door is open or patient has been hb1 placed in a hallway bed/chair. There are no family/friend visitors at this time Sitter present at this time. 03:03 Appears to be sleeping. Safety Checks: Personal items have been removed. The door is hb1 open or patient has been placed in a hallway bed/chair. There are no family/friend visitors at this time Sitter present at this time. 03:16 No apparent distress. Appears to be sleeping. Safety Checks: Personal items have been hb1 removed. The door is open or patient has been placed in a hallway bed/chair. There are no family/friend visitors at this time Sitter present at this time. 03:30 Appears to be sleeping. Safety Checks: Personal items have been removed. The door is hb1 open or patient has been placed in a hallway bed/chair. There are no family/friend visitors at this time Sitter present at this time. 03:45 Safety Checks: Personal items have been removed. The door is open or patient has been hb1 placed in a hallway bed/chair. There are no family/friend visitors at this time Sitter present at this time. pt remains sleeping. 04:01 Safety Checks: Personal items have been removed. The door is open or patient has been hb1 placed in a hallway bed/chair. There are no family/friend visitors at this time Sitter present at this time. 04:14 Safety Checks: Personal items have been removed. The door is open or patient has been hb1 placed in a hallway bed/chair. There are no family/friend visitors at this time Sitter present at this time. 04:30 No apparent distress. Resting quietly. Appears to be sleeping. Safety Checks: Personal hb1 items have been removed. The door is open or patient has been placed in a hallway bed/chair. There are no family/friend visitors at this time Sitter present at this time. 04:44 Appears to be sleeping. Safety Checks: Personal items have been removed. The door is hb1 open or patient has been placed in a hallway bed/chair. There are no family/friend visitors at this time Sitter present at this time. 05:04 Safety Checks: Personal items have been removed. The door is open or patient has been hb1 placed in a hallway bed/chair. There are no family/friend visitors at this time Sitter present at this time. 05:20 Safety Checks: Personal items have been removed. The door is open or patient has been hb1 placed in a hallway bed/chair. There are no family/friend visitors at this time Sitter present at this time. 05:45 Appears to be sleeping. Safety Checks: Personal items have been removed. The door is hb1 open or patient has been placed in a hallway bed/chair. There are no family/friend visitors at this time Sitter present at this time. 06:00 Safety Checks: Personal items have been removed. The door is open or patient has been hb1 placed in a hallway bed/chair. There are no family/friend visitors at this time Sitter present at this time. pt remains sleeping. 06:16 Appears to be sleeping. Safety Checks: Personal items have been removed. The door is hb1 open or patient has been placed in a hallway bed/chair. There are no family/friend visitors at this time Sitter present at this time. 06:32 Appears to be sleeping. Safety Checks: Personal items have been removed. The door is hb1 open or patient has been placed in a hallway bed/chair. There are no family/friend visitors at this time Sitter present at this time. 06:38 PHCP role handed off by Breana Irving FNP-C cp 06:38 Jignesh Camp PA is PHCP. cp 06:45 Safety Checks: Personal items have been removed. The door is open or patient has been hb1 placed in a hallway bed/chair. There are no family/friend visitors at this time Sitter present at this time. 06:59 Safety Checks: Personal items have been removed. The door is open or patient has been hb1 placed in a hallway bed/chair. There are no family/friend visitors at this time Sitter present at this time. pt remains sleeping. 07:00 Safety Checks: Personal items have been removed. The door is open or patient has been bp placed in a hallway bed/chair. There are no family/friend visitors at this time Sitter present at this time. 07:06 Safety Checks: Personal items have been removed. The door is open or patient has been hb1 placed in a hallway bed/chair. There are no family/friend visitors at this time Sitter present at this time. hand over report to Mr. Fernandez. 07:15 Safety Checks: Personal items have been removed. The door is open or patient has been bp placed in a hallway bed/chair. There are no family/friend visitors at this time Sitter present at this time. 07:30 Safety Checks: Personal items have been removed. The door is open or patient has been bp placed in a hallway bed/chair. There are no family/friend visitors at this time Sitter present at this time. 07:45 Safety Checks: Personal items have been removed. The door is open or patient has been bp placed in a hallway bed/chair. There are no family/friend visitors at this time Sitter present at this time. 07:50 contacted [place] at [facility], pt is on waiting list. [facility] waiting on bd discharges. 08:00 Safety Checks: Personal items have been removed. The door is open or patient has been bp placed in a hallway bed/chair. There are no family/friend visitors at this time Sitter present at this time. 08:15 Safety Checks: Personal items have been removed. The door is open or patient has been bp placed in a hallway bed/chair. There are no family/friend visitors at this time Sitter present at this time. 08:30 Safety Checks: Personal items have been removed. The door is open or patient has been bp placed in a hallway bed/chair. There are no family/friend visitors at this time Sitter present at this time. 08:45 Safety Checks: Personal items have been removed. The door is open or patient has been bp placed in a hallway bed/chair. There are no family/friend visitors at this time Sitter present at this time. 09:00 Safety Checks: Personal items have been removed. The door is open or patient has been bp placed in a hallway bed/chair. There are no family/friend visitors at this time Sitter present at this time. 09:15 Safety Checks: Personal items have been removed. The door is open or patient has been bp placed in a hallway bed/chair. There are no family/friend visitors at this time Sitter present at this time. 09:30 Safety Checks: Personal items have been removed. The door is open or patient has been bp placed in a hallway bed/chair. There are no family/friend visitors at this time Sitter present at this time. 09:45 Safety Checks: Personal items have been removed. The door is open or patient has been bp placed in a hallway bed/chair. There are no family/friend visitors at this time Sitter present at this time. 10:00 Safety Checks: Personal items have been removed. The door is open or patient has been bp placed in a hallway bed/chair. There are no family/friend visitors at this time Sitter present at this time. 10:15 Safety Checks: Personal items have been removed. The door is open or patient has been bp placed in a hallway bed/chair. There are no family/friend visitors at this time Sitter present at this time. 10:30 Safety Checks: Personal items have been removed. The door is open or patient has been bp placed in a hallway bed/chair. There are no family/friend visitors at this time Sitter present at this time. 10:45 Safety Checks: Personal items have been removed. The door is open or patient has been bp placed in a hallway bed/chair. There are no family/friend visitors at this time Sitter present at this time. 11:00 Safety Checks: Personal items have been removed. The door is open or patient has been bp placed in a hallway bed/chair. There are no family/friend visitors at this time Sitter present at this time. 11:15 Safety Checks: Personal items have been removed. The door is open or patient has been bp placed in a hallway bed/chair. There are no family/friend visitors at this time Sitter present at this time. 11:30 Safety Checks: Personal items have been removed. The door is open or patient has been bp placed in a hallway bed/chair. There are no family/friend visitors at this time Sitter present at this time. 11:45 Safety Checks: Personal items have been removed. The door is open or patient has been bp placed in a hallway bed/chair. There are no family/friend visitors at this time Sitter present at this time. 12:00 Safety Checks: Personal items have been removed. The door is open or patient has been bp placed in a hallway bed/chair. There are no family/friend visitors at this time Sitter present at this time. 12:00 Safety checks: Items removed: yes. Door open/sign placed on door: yes. Family/friend jp3 present: yes. Family/friends encouraged to stay with patient. Sitter present: Yes. 12:15 Safety Checks: Personal items have been removed. The door is open or patient has been bp placed in a hallway bed/chair. There are no family/friend visitors at this time Sitter present at this time. 12:15 Safety checks: Items removed: yes. Door open/sign placed on door: yes. Family/friend jp3 present: yes. Family/friends encouraged to stay with patient. Sitter present: Yes. 12:30 Safety Checks: Personal items have been removed. The door is open or patient has been bp placed in a hallway bed/chair. There are no family/friend visitors at this time Sitter present at this time. 12:30 Safety checks: Items removed: yes. Door open/sign placed on door: yes. Family/friend jp3 present: no. Sitter present: Yes. 12:45 Safety Checks: Personal items have been removed. The door is open or patient has been bp placed in a hallway bed/chair. There are no family/friend visitors at this time Sitter present at this time. 12:45 Safety checks: Items removed: yes. Door open/sign placed on door: yes. Family/friend jp3 present: no. Sitter present: Yes. Diet tray given. Verbal reassurance given. 13:00 Safety Checks: Personal items have been removed. The door is open or patient has been bp placed in a hallway bed/chair. There are no family/friend visitors at this time Sitter present at this time. 13:00 Safety checks: Items removed: yes. Door open/sign placed on door: yes. Family/friend jp3 present: no. Sitter present: Yes. 13:15 Safety Checks: Personal items have been removed. The door is open or patient has been bp placed in a hallway bed/chair. There are no family/friend visitors at this time Sitter present at this time. 13:15 Safety checks: Items removed: yes. Door open/sign placed on door: yes. Family/friend jp3 present: no. Sitter present: Yes. 13:30 Safety Checks: Personal items have been removed. The door is open or patient has been bp placed in a hallway bed/chair. There are no family/friend visitors at this time Sitter present at this time. 13:30 Safety checks: Items removed: yes. Door open/sign placed on door: yes. Family/friend jp3 present: no. Sitter present: Yes. 13:45 Safety Checks: Personal items have been removed. The door is open or patient has been bp placed in a hallway bed/chair. There are no family/friend visitors at this time Sitter present at this time. 13:45 Safety checks: Items removed: yes. Door open/sign placed on door: yes. Family/friend jp3 present: no. Sitter present: Yes. 14:00 Safety Checks: Personal items have been removed. The door is open or patient has been bp placed in a hallway bed/chair. There are no family/friend visitors at this time Sitter present at this time. 14:00 Safety checks: Items removed: yes. Door open/sign placed on door: yes. Family/friend jp3 present: no. Sitter present: Yes. 14:15 Safety Checks: Personal items have been removed. The door is open or patient has been bp placed in a hallway bed/chair. There are no family/friend visitors at this time Sitter present at this time. 14:15 Safety checks: Items removed: yes. Door open/sign placed on door: yes. Family/friend jp3 present: no. Sitter present: Yes. 14:30 Safety Checks: Personal items have been removed. The door is open or patient has been bp placed in a hallway bed/chair. There are no family/friend visitors at this time Sitter present at this time. 14:30 Safety checks: Items removed: yes. Door open/sign placed on door: yes. Family/friend jp3 present: no. Sitter present: Yes. 14:45 Safety Checks: Personal items have been removed. The door is open or patient has been bp placed in a hallway bed/chair. There are no family/friend visitors at this time Sitter present at this time. 14:45 Safety checks: Items removed: yes. Door open/sign placed on door: yes. Family/friend jp3 present: no. Sitter present: Yes. 15:00 Safety Checks: Personal items have been removed. The door is open or patient has been bp placed in a hallway bed/chair. There are no family/friend visitors at this time Sitter present at this time. 15:00 Safety checks: Items removed: yes. Door open/sign placed on door: yes. Family/friend jp3 present: no. Sitter present: Yes. 15:15 Safety Checks: Personal items have been removed. The door is open or patient has been bp placed in a hallway bed/chair. There are no family/friend visitors at this time Sitter present at this time. 15:15 Safety checks: Items removed: yes. Door open/sign placed on door: yes. Family/friend jp3 present: no. Sitter present: Yes. 15:30 Safety Checks: Personal items have been removed. The door is open or patient has been bp placed in a hallway bed/chair. There are no family/friend visitors at this time Sitter present at this time. 15:30 Safety checks: Items removed: yes. Door open/sign placed on door: yes. Family/friend jp3 present: no. Sitter present: Yes. 15:[address] moreno at [facility]. bd 15:45 Safety Checks: Personal items have been removed. The door is open or patient has been bp placed in a hallway bed/chair. There are no family/friend visitors at this time Sitter present at this time. 15:45 Safety checks: Items removed: yes. Door open/sign placed on door: yes. Family/friend jp3 present: no. Sitter present: Yes. 16:00 Safety Checks: Personal items have been removed. The door is open or patient has been bp placed in a hallway bed/chair. There are no family/friend visitors at this time Sitter present at this time. 16:00 Safety checks: Items removed: yes. Door open/sign placed on door: yes. Family/friend jp3 present: yes. Family/friends encouraged to stay with patient. Sitter present: Yes. Administered Medications: No medications were administered Outcome: 14:28 ER care complete, transfer ordered by MD. rangel 16:27 Patient left the ED. bp Signatures: Karen Riley Stephanie, RN RN Breana Mckeon, CORPORATE EXECUTIVE-C CORPORATE EXECUTIVE-Csnw Bill Ortiz em1 Maryana Barron, RN RN ss Cindy Stewart, laborer steel handling EKG Tat1 Jignesh Camp PA PA cp Peltier, Brian, RN RN bp Epi Ramirez jp3 Minoo Kelli hb1 Mar Zazueta cm6 Radha Malhotra, RN RN tr5 Corrections: (The following items were deleted from the chart) 04/23 15:46 15:44 Reassessment: Personal Valuables Admission checklist completed: Black pants, Mims ss shirt, black and blue Jordans (shoes) and black watch placed in belonging bag and given to security. 16:15 16:14 Safety checks: Items removed: yes. Door open/sign placed on door: yes. em1 Family/friend present: no. Sitter present: Yes. em1 18:38 16:28 TROPONIN I+C.LAB.BRZ drawn and sent. EDMS
[2019-04-24 16:38] VITALS: TEMP 97.8
[2019-04-24 16:42] VITALS: BP 114/69; O2SAT 100
== END 2019-04-24 16:27 ==
LOC: ER 15:32
DX: R45.851 Suicidal ideations (principal); F32.9 Major depressive disorder, single episode, unspecified
CPT/HCPCS: 36415; 80048; 80076; 80307; 80320; 80329; 81003; 84484; 85025; 85610; 85730; 93005

== ENCOUNTER 2021-07-19 08:22 | Emergency (ER) | payer SELFPAY ==
[2021-07-19 09:06] LABS: Absolute Lymphocytes (CBC) 1.8 K/uL (0.7-4.9); Basophils % 0.6 % (0-1.3); Hematocrit 46.8 % (39.6-49.0); Lymphocytes % 22.3 % (15.3-44.8); MPV 7.2 fL (7.6-11.3); RBC Red Blood Cell Count 5.23 M/uL (4.33-5.43)
[2021-07-19] MEDS ORDERED: MAGNES/ALUMIN/SIMET 30ML UCUP ONE (09:06)
[2021-07-19 09:23] LABS: ALT/SGPT 58 U/L (12-78); AST/SGOT 20 U/L (15-37); Albumin 4.3 g/dL (3.4-5.0); Alkaline Phosphatase 47 U/L (45-117); BUN Blood Urea Nitrogen 11 mg/dL (7-18); Bicarbonate 25 mmol/L (21-32); Bilirubin Direct 0.2 mg/dL (0-0.2); Bilirubin Total 0.4 mg/dL (0.2-1.0); Glucose Level 117 mg/dL (74-106); Lipase 59 U/L (73-393); Potassium 4.2 mmol/L (3.5-5.1); Protein, Total 7.8 g/dL (6.4-8.2); Sodium Level 141 mmol/L (136-145)
--- NOTE | 2021-07-19 10:11 | RAD REPORT ---
EXAM DESCRIPTION: CT - Abdomen Pelvis W Contrast - 07/19/2021 9:47 am CLINICAL HISTORY: Abdominal pain COMPARISON: 2012 TECHNIQUE: Computed axial tomography of the abdomen pelvis was obtained. 100 cc Isovue-300 was admin istered intravenously. Oral contrast was not requested which limits evaluation of bowel. All CT scans are performed using dose optimization technique as appropriate and may include automated exposure control or mA/KV adjustment according to patient size. FINDINGS: The liver, spleen, pancreas, adrenal and kidneys appear unremarkable. There is no evidence of diverticulitis. The wall of the descending, transverse and ascending colon ap pears mildly thickened. Slight anterior subluxation L5 on S1. Spondylolysis L5. Moderate left inguinal hernia contains fat. Small umbilical hernia IMPRESSION: The wall of the descending, transverse and ascending colon appears mildly thickened. Thi s may be secondary to a mild colitis or incomplete distention and should be correlated clinically.
--- NOTE | 2021-07-19 10:31 | ER ---
Nurse's Notes [facility] Name: Sal Davies Age: 25 yrs Sex: Male : 1995 Arrival Date: 07/19/2021 Time: 08:23 Bed 5 Private MD: Diagnosis: Infectious gastroenteritis and colitis, unspecified Presentation: 07/19 08:24 Chief complaint: Patient states: nausea and diarrhea since Monday. Pt states "I aa5 haven't really been eating so I don't have anything in me for it to come out". Pt also c/o abd pain. 08:24 Coronavirus screen: diarrhea. Ebola Screen: No symptoms or risks identified at this aa5 time. Initial Sepsis Screen: Does the patient meet any 2 criteria? No. Patient's initial sepsis screen is negative. Does the patient have a suspected source of infection? No. Patient's initial sepsis screen is negative. Risk Assessment: Do you want to hurt yourself or someone else? Patient reports no desire to harm self or others. Onset of symptoms was July 2021. 08:24 Acuity: ASHLEIGH 3 aa5 08:24 Method Of Arrival: Ambulatory aa5 Triage Assessment: 09:00 General: Appears in no apparent distress. uncomfortable, obese, Behavior is bp cooperative, appropriate for age, anxious. Pain: Complains of pain in epigastric area. EENT: No deficits noted. Neuro: No deficits noted. Cardiovascular: No deficits noted. Respiratory: Airway is patent Respiratory effort is even, unlabored, Respiratory pattern is regular, symmetrical. GI: Reports diarrhea. : No signs and/or symptoms were reported regarding the genitourinary system. Derm: No deficits noted. Musculoskeletal: No deficits noted. Historical: - Allergies: 08:33 No Known Allergies; ll1 - PMHx: 08:33 Anxiety; Depression; ll1 - PSHx: 08:33 Appendectomy; Tonsillectomy; ll1 - Immunization history:: Client reports receiving the 2nd dose of the Covid vaccine. - Social history:: Smoking status: Patient denies any tobacco usage or history of. Screenin:00 Abuse screen: Denies threats or abuse. Denies injuries from another. Nutritional bp screening: No deficits noted. Tuberculosis screening: No symptoms or risk factors identified. Fall Risk None identified. Assessment: 09:00 General: SEE TRIAGE NOTE. bp 10:00 Reassessment: PT IN CT. bp 10:38 Reassessment: DC/ ON HOLD FOR IV ABX. bp 12:30 Reassessment: No changes from previously documented assessment. Patient and/or family ll1 updated on plan of care and expected duration. Pain level reassessed. Patient is alert, oriented x 3, equal unlabored respirations, skin warm/dry/pink. Vital Signs: 08:24 BP 141 / 98; Pulse 88; Resp 18 S; Temp 97.7(TE); Pulse Ox 98% on R/A; Weight 88.45 kg aa5 (R); Height 5 ft. 5 in. (165.10 cm) (R); 10:38 BP 116 / 83; Pulse 68; Resp 18; Pulse Ox 98% ; bp 12:30 BP 135 / 84; Pulse 71; Resp 17; Pulse Ox 100% ; ll1 08:24 Body Mass Index 32.45 (88.45 kg, 165.10 cm) aa5 ED Course: 08:23 Patient arrived in ED. am2 08:25 Kathleen Schultz MD is Attending Physician. sp3 08:27 Jose Marshall, RN is Primary Nurse. bp 08:33 Arm band placed on Patient placed in an exam room, on a stretcher. ll1 08:36 Triage completed. aa5 08:55 COVID-19 SARS RT PCR (Document "Date of Onset" if Symptomatic) Sent. bp 08:55 SARS-COV-2 RT PCR Sent. bp 08:55 Inserted saline lock: 22 gauge in left antecubital area, using aseptic technique. Blood ll1 collected. 09:47 CT Abd/Pelvis - IV Contrast Only In Process Unspecified. EDMS 10:00 Patient has correct armband on for positive identification. Bed in low position. Call bp light in reach. Side rails up X2. 12:30 No provider procedures requiring assistance completed. IV discontinued, intact, ll1 bleeding controlled, No redness/swelling at site. Pressure dressing applied. Administered Medications: 09:10 Drug: Maalox (aluminum hydroxide, magnesium hydroxide, simethicone) Suspension (200 bp mg-200 mg-20 mg/5 mL) 30 ml Route: PO; 10:21 Follow up: Response: No adverse reaction bp 10:30 Drug: Cipro (ciprofloxacin) 400 mg Volume: 200 ml; Route: IVPB; Infused Over: 60 mins; bp Site: right antecubital; 11:54 Follow up: IV Status: Completed infusion; IV Intake: 100ml bp 11:54 Drug: Flagyl (metroNIDAZOLE) 500 mg Volume: 100 ml; Route: IVPB; Rate: 200 ml/hr; bp Infused Over: 30 mins; Site: right antecubital; 12:22 Follow up: Response: No adverse reaction; IV Status: Completed infusion; IV Intake: ll1 100ml Intake: 11:54 IV: 100ml; Total: 100ml. bp 12:22 IV: 100ml; Total: 200ml. ll1 Outcome: 10:30 Discharge ordered by . sp3 12:30 Discharged to home ambulatory. ll1 12:30 Condition: stable 12:30 Discharge instructions given to patient, Instructed on discharge instructions, follow up and referral plans. medication usage, Demonstrated understanding of instructions, follow-up care, medications, Prescriptions given X 2. 12:30 Patient left the ED. ll1 Signatures: Dispatcher [employer] EDNH Tiffany Perez, RN RN sam5 Cindy Sebastian Brian, RN RN Jose Riojas RN RN ll1 Kathleen Schultz MD MD sp3
--- NOTE | 2021-07-19 10:31 | EDPHYS ---
Physician Documentation [facility] Name: Sal Davies Age: 25 yrs Sex: Male : 1995 Arrival Date: 07/19/2021 Time: 08:23 Bed 5 Private MD: ED Physician Kathleen Schultz HPI: 07/19 08:42 This 25 yrs old Black Male presents to ER via Ambulatory with complaints of Diarrhea, sp3 Epigastric Pain. 08:42 25-year-old male with a history of anxiety, depression, prior appendectomy who now sp3 presents to the emergency department with a 3-day history of nausea, vomiting, diarrhea with predominantly diarrhea as the main symptom. Patient states he may have had bad food on night late and on Monday he started having burping and reflux of the same tasting food which was slow to seafood in [place]. Monday evening he developed watery diarrhea which is continued all day Monday and 2 today. His work also required him to have a Covid test. Patient also complains of diffuse abdominal cramping which is still occurring. On review of systems, he denies headache, neck pain, chest pain, shortness of breath, back pain, extremity pain, rash, syncope, focal neuro deficit, any other symptoms at this time. Remainder of ROS is negative.. Historical: - Allergies: 08:33 No Known Allergies; ll1 - PMHx: 08:33 Anxiety; Depression; ll1 - PSHx: 08:33 Appendectomy; Tonsillectomy; ll1 - Immunization history:: Client reports receiving the 2nd dose of the Covid vaccine. - Social history:: Smoking status: Patient denies any tobacco usage or history of. ROS: 08:44 Constitutional: Negative for fever, chills, and weight loss, Eyes: Negative for injury, sp3 pain, redness, and discharge, ENT: Negative for injury, pain, and discharge, Neck: Negative for injury, pain, and swelling, Cardiovascular: Negative for chest pain, palpitations, and edema, Respiratory: Negative for shortness of breath, cough, wheezing, and pleuritic chest pain, Back: Negative for injury and pain, : Negative for injury, bleeding, discharge, and swelling, MS/Extremity: Negative for injury and deformity, Skin: Negative for injury, rash, and discoloration, Neuro: Negative for headache, weakness, numbness, tingling, and seizure, Psych: Negative for depression, anxiety, suicide ideation, homicidal ideation, and hallucinations, Allergy/Immunology: Negative for hives, rash, and allergies, Endocrine: Negative for neck swelling, polydipsia, polyuria, polyphagia, and marked weight changes, Hematologic/Lymphatic: Negative for swollen nodes, abnormal bleeding, and unusual bruising. 08:44 All other systems are negative. Exam: 08:44 Constitutional: This is a well developed, well nourished patient who is awake, alert, sp3 and in no acute distress. Head/Face: Normocephalic, atraumatic. Eyes: Pupils equal round and reactive to light, extra-ocular motions intact. Lids and lashes normal. Conjunctiva and sclera are non-icteric and not injected. Cornea within normal limits. Periorbital areas with no swelling, redness, or edema. ENT: Nares patent. No nasal discharge, no septal abnormalities noted. External auditory canals are clear. Oropharynx with no redness, swelling, or masses, exudates, or evidence of obstruction, uvula midline. Mucous membranes moist. Neck: Trachea midline, no thyromegaly or masses palpated, and no cervical lymphadenopathy. Supple, full range of motion without nuchal rigidity, or vertebral point tenderness. No Meningismus. Chest/axilla: Normal chest wall appearance and motion. Nontender with no deformity. No lesions are appreciated. Cardiovascular: Regular rate and rhythm with a normal S1 and S2. No gallops, murmurs, or rubs. Normal PMI, no JVD. No pulse deficits. Respiratory: Lungs have equal breath sounds bilaterally, clear to auscultation and percussion. No rales, rhonchi or wheezes noted. No increased work of breathing, no retractions or nasal flaring. Back: No spinal tenderness. No costovertebral tenderness. Full range of motion. Skin: Warm, dry with normal turgor. Normal color with no rashes, no lesions, and no evidence of cellulitis. MS/ Extremity: Pulses equal, no cyanosis. Neurovascular intact. Full, normal range of motion. Neuro: Awake and alert, GCS 15, oriented to person, place, time, and situation. Cranial nerves II-XII grossly intact. Motor strength 5/5 in all extremities. Sensory grossly intact. Cerebellar exam normal. Normal gait. Psych: Awake, alert, with orientation to person, place and time. Behavior, mood, and affect are within normal limits. 08:44 Abdomen/GI: Abdomen is soft and mildly tender diffusely with no focal tenderness. There are no peritoneal signs including rebound and guarding. Bowel sounds are active and increased. There is no CVA tenderness.. Vital Signs: 08:24 BP 141 / 98; Pulse 88; Resp 18 S; Temp 97.7(TE); Pulse Ox 98% on R/A; Weight 88.45 kg aa5 (R); Height 5 ft. 5 in. (165.10 cm) (R); 10:38 BP 116 / 83; Pulse 68; Resp 18; Pulse Ox 98% ; bp 12:30 BP 135 / 84; Pulse 71; Resp 17; Pulse Ox 100% ; ll1 08:24 Body Mass Index 32.45 (88.45 kg, 165.10 cm) aa5 MDM: 08:25 Patient medically screened. sp3 08:45 Data reviewed: vital signs, nurses notes. ED course: Patient has gastroenteritis likely sp3 viral or foodborne. Will obtain CT scan of the abdomen and pelvis given his tenderness, and laboratory values as well as a Covid test. If work-up is negative will discharge patient home with oral antibiotics with instructions to not start them until tomorrow if symptoms are still present. Otherwise if the symptoms resolve on their own for the remainder of today, he will need supportive care.. 10:29 ED course: CT demonstrates colitis otherwise no other acute findings. Laboratory values sp3 have been reviewed and are within normal limits with no significant findings. Will administer Cipro and Flagyl IV and discharge patient on oral antibiotics with PCP follow-up.. 07/19 08:41 Order name: Basic Metabolic Panel; Complete Time: 09:36 sp3 07/19 08:41 Order name: CBC with Diff; Complete Time: :36 sp3 07/19 08:41 Order name: Hepatic Function; Complete Time: 09:36 sp3 07/19 08:41 Order name: Lipase; Complete Time: 09:36 sp3 07/19 08:47 Order name: COVID-19 SARS RT PCR (Document "Date of Onset" if Symptomatic) sp3 07/19 08:47 Order name: SARS-COV-2 RT PCR; Complete Time: 10:27 EDMS 07/19 08:41 Order name: IV Saline Lock; Complete Time: 08:59 sp3 07/19 08:41 Order name: Labs collected and sent; Complete Time: 08:59 sp3 07/19 08:41 Order name: CT Abd/Pelvis - IV Contrast Only; Complete Time: 10:27 sp3 Administered Medications: 09:10 Drug: Maalox (aluminum hydroxide, magnesium hydroxide, simethicone) Suspension (200 bp mg-200 mg-20 mg/5 mL) 30 ml Route: PO; 10:21 Follow up: Response: No adverse reaction bp 10:30 Drug: Cipro (ciprofloxacin) 400 mg Volume: 200 ml; Route: IVPB; Infused Over: 60 mins; bp Site: right antecubital; 11:54 Follow up: IV Status: Completed infusion; IV Intake: 100ml bp 11:54 Drug: Flagyl (metroNIDAZOLE) 500 mg Volume: 100 ml; Route: IVPB; Rate: 200 ml/hr; bp Infused Over: 30 mins; Site: right antecubital; 12:22 Follow up: Response: No adverse reaction; IV Status: Completed infusion; IV Intake: ll1 100ml Disposition Summary: 07/19/21 10:30 Discharge Ordered Location: Home sp3 Condition: Stable sp3 Diagnosis - Infectious gastroenteritis and colitis, unspecified sp3 Followup: sp3 - With: Private Physician - When: Upon discharge from the Emergency Department - Reason: Re-evaluation by your physician Discharge Instructions: - Discharge Summary Sheet sp3 - Diarrhea, Adult sp3 Forms: - Medication Reconciliation Form sp3 - Work release form ll1 - Thank You Letter sp3 - Antibiotic Education sp3 - Prescription Opioid Use sp3 Prescriptions: - Cipro 500 mg Oral Tablet - take 1 tablet by ORAL route every 12 hours for 7 days; 14 tablet; Refills: 0, sp3 Product Selection Permitted - Flagyl 500 mg Oral Tablet - take 1 tablet by ORAL route every 12 hours for 7 days; 14 tablet; Refills: 0, sp3 Product Selection Permitted Signatures: Dispatcher [employer] EDJose Hinkle RN Jose Padron RN RN [facility] Kathleen Schultz MD MD sp3
[2021-07-19] MEDS ORDERED: METRONIDAZOLE 500mg IVPB 500 MG/100 ML BAG IV ONE (10:41)
[2021-07-19] MEDS ORDERED: CIPROFLOXACIN 400mg IV 400 MG/200 ML BAG IV ONE (10:41)
[2021-07-19 12:54] VITALS: TEMP 97.7
[2021-07-19 12:57] VITALS: BP 135/84; O2SAT 100
--- OUTSIDE RECORDS SUMMARY | 2021-07-24 16:18 | XMS REPORT | Continuity of Care Document ---
:1995 Author Organization [facility] t Address [address] [place] [address] Care Team Providers Name Role Phone UNKNOWN Primary Care Physician Unavailable JOSELITO GAMEZ M.D. Attending Clinician Unavailable JOSELITO GAMEZ M.D. Admitting Clinician Unavailable Problems This patient has no known problems. Allergies, Adverse Reactions, Alerts This patient has no known allergies or adverse reactions. Medications This patient has no known medications. Procedures This patient has no known procedures. Results Test Description Test Time Test Comments Results Result Comments Source Thyroid Stimulating Hormone 2019-04-25 08:35:00 Test Item Value Reference Range Interpretation Comme nts TSH (test code = TSH) 3.460 mIU/mL 0.270-4.200 Lipid [id number] 08:24:38 Test Item Value Reference Range Interpretation Comments Cholesterol Total 156 mg/dL 0-200 RISK OF HE ART (test code = DISEASEPublishe d by Cholesterol Total) [place] [employer] Janeth lyte Optimal Borderl ine Increased RiskC HOL <200 200-239 >2 40TRIG <150 150-199 >2 00HDL Male >60 <40H DL Female >60 <5 0LDL <100 130-159 >1 60LDL Near optimal is 100-129 Triglycerides (test 117 mg/dL 9-200 code = Triglycerides) HDL (test code = HDL) 38 mg/dL 40-60 L LDL (test code = LDL) 95 mg/dL 0-130 The eq uation being used in this calcula tion is LDL = (Chol - H DL) - (Trig / 5) VLDL (test code = 23 mg/dL 5-40 The equati on being used VLDL) in this calcula tion is VLDL = Trig / 5 Chol/HDL (test code = 4.1 ratio 0.0-5.0 Chol/HDL) LDL/HDL Ratio (test 3 N The equa tion being used code = LDL/HDL Ratio) in thi s calculation is LDL/HDL Ratio=L DL Calc/HDL Chol Urinalysis [id number] 23:54:00 Test Item Value Reference Range Interpretation Comments Color (test code = COLOR) Yellow Yellow,Straw,Pl N yellow Clarity (test code = Clear Clear N CLAR) Specific [place] (test 1.026 1.001-1.035 N code = SPGR) pH (test code = PH) 5.0 5.0-9.0 N Ketone (test code = KET) 5 mg/dL Negative A Glucose (test code = Negative mg/dL Negative N GLUCUR) Protein (test code = Negative mg/dL Negative N PROT) Bilirubin (test code = Negative mg/dL Negative N BILI) Occult Blood (test code = Mod to Large Negative A UDOB) Urobilinogen (test code = 0.2 mg/dL 0.2-1.0 N UROB) Nitrite (test code = NIT) Negative Negative N Leuk Esterase (test code Negative Negative N = LEUK) Micros Exam (test code = Indicated MEXAM) Epithelial Cells (test None /LPF 0-30 A code = EPI) WBC, Urine (test code = 0-1 /HPF 0-5 A UWBC) RBC, Urine (test code = 0-3 /HPF 0-5 A URBC) Bacteria (test code = None /HPF BACT) [id number] 23:52:00 Test Item Value Reference Range Interpretation Comments Amphetamine (test POSITIVE Negative A For diagno stic code = AMPH) purposes only, positive result s should always b e assessedin conjunctionwith the patient's medic al history,clinica l examination and otherfindings.T o fulfill legal requirements, a more specific altern ate chemical method must be used inorder to obtain a Confirmed janeth lytical result. GC/MS i s the preferred confi rmatory method. Barbiturates (test Negative Negative N code = DELMER) Benzodiazepine (test Negative Negative N code = VALENTINO) Cocaine (test code = POSITIVE Negative A COCA) Methadone (test code Negative Negative N = MTHD) Opiates (test code = Negative Negative N OPIA) PCP (test code = PCP) Negative Negative N Propoxyphene (test Negative Negative N code = PROPOX) THC (test code = THC) POSITIVE Negative A Alcohol, Urine (test <0.01 g/dL 0.00-0.01 N code = ETOHU) Comprehensive Metabolic [id number] 23:52:00 Test Item Value Reference Range Interpretation Comments Sodium (test code = 142 mmol/L 135-145 N NA) Potassium (test 4.2 mmol/L 3.5-5.1 N code = K) Chloride (test code 105 mmol/L 98-105 N = CL) Carbon Dioxide 25 mmol/L 22-29 N (test code = CO2) Glucose (test code 100 mg/dL 70-115 N = GLU) Blood Urea Nitrogen 15 mg/dL 6-20 N (test code = BUN) Creatinine (test 1.1 mg/dL 0.7-1.2 N code = CREAT) Calcium (test code 9.6 mg/dL 8.3-10.5 N = CA) Prot Total (test 6.7 g/dL 6.4-8.3 N code = TP) Albumin (test code 4.5 g/dL 3.5-5.2 N = ALB) A/G Ratio (test 2.0 Ratio code = AGRATIO) Globulin (test code 2.2 2.9-3.1 L = GLOB) Bili Total (test 0.2 mg/dL 0.1-0.9 N code = TBIL) Alk Phos (test code 52 U/L 40-129 N = APHOS) AST (test code = 32 U/L 1-40 N AST) ALT (test code = 20 U/L 1-41 N ALT) BUN/Creatinine 13.6 Ratio (test code = BCRATIO) Anion Gap (test 12 mmol/L 7-16 N code = AGAP) Estimated GFR (test >60 eGFR (es timated code = GFR) mL/min/1.73m2 Glomerular Christoph tration Rate) is an est imated value,calculate d from the patient's s danette creatinine usin g the MDRD equation.I t is NOT the patient 's actual GFR. The eGFR provides a more clinicallyusefu l measure of kidn ey disease than se rum creatinine alone.This calculation lakisha es sex and race into account, if the informationis provided. If th e race is not provided , and the patient isAfrican-Ameri can, multiply by 1.2 12. If sex is not prov ided, and thepatient is female, multipl y by 0.742. Results for patients <18 ye ars ofage have not been validated by bernardino kapoor MDRD study and manuel hadley be interpretedwith caution.eGFR Re sult Interpretation: eGFR > or = 60 is in t he Normal RangeeGF R < 60 may mean kidney diseaseeGFR < 1 5 may mean kidney failureRange s recommended by the National Kidney Foundation,http ://nkd ep.nih.gov CBC with [id number] 23:40:00 Test Item Value Reference Range Interpretation Comments WBC (test code = WBC) 9.4 K/cumm 4.4-10.5 N RBC (test code = RBC) 4.66 M/cumm 4.10-5.70 N Hemoglobin (test code = HGB) 14.6 gm/dL 13.4-17.4 N Hematocrit (test code = HCT) 44.2 % 38.7-52.0 N MCV (test code = MCV) 94.8 fL 80-100 N MCH (test code = MCH) 31.4 pg 27.0-32.5 N MCHC (test code = MCHC) 33.1 g/dL 32.0-37.5 N RDW (test code = RDW) 12.1 % 11.5-14.5 N Platelet Count (test code = 303 K/cumm 140-440 N PLTCT) MPV (test code = MPV) 7.4 fL Diff Method (test code = DIFFM) Auto Neutrophil (test code = NEUT) 54.8 % 36-70 N Lymphocyte (test code = LYMPH) 35.6 % 12-44 N Monocyte (test code = MONO) 7.1 % 0-11 N Eosinophil (test code = EOS) 2.2 % 0-7 N Basophil (test code = BASO) 0.4 % 0-2 N Neutro Abs (test code = ANEUT) 5.1 K/cumm 1.6-7.4 N Lymph Abs (test code = ALYMPH) 3.3 K/cumm 0.5-4.6 N [place] Abs (test code = AMONO) 0.7 K/cumm 0.0-1.2 N Eos Abs (test code = AEOS) 0.20 K/cumm 0.00-0.74 N [place] Abs (test code = ABASO) 0.0 K/cumm 0.00-0.21 N
== END 2021-07-19 12:30 | disposition home or self-care (01) ==
LOC: ER 08:22
DX: A09 Infectious gastroenteritis and colitis, unspecified (principal); Z20.822 Contact with and (suspected) exposure to COVID-19
CPT/HCPCS: 36415; 74177; 80048; 80076; 83690; 85025; 96365; 96367; 99284; J0744; Q9967; U0003

== ENCOUNTER 2022-01-28 21:39 | Emergency (ER) | payer SELFPAY ==
--- OUTSIDE RECORDS SUMMARY | 2022-01-28 21:42 | XMS REPORT | Continuity of Care Document ---
:1995 Author Organization [facility] t Address [address] [place] [address] Care Team Providers Name Role Phone UNKNOWN [...] code = TSH) 3.460 mIU/mL 0.270-4.200 Lipid [id number] 08:24:38 Test Item Value Reference Range Interpretation Comments Cholesterol Total 156 mg/dL 0-200 RISK OF HE ART (test code = DISEASEPublishe d by Cholesterol Total) [place] [employer] Janeth lyte Optimal Borderl ine [...] is LDL/HDL Ratio=L DL Calc/HDL Chol Urinalysis [id number] 23:54:00 Test Item Value Reference Range Interpretation Comments Color (test code = COLOR) Yellow Yellow,Straw,Pl N yellow Clarity (test code = Clear Clear N CLAR) Specific [place] (test 1.026 1.001-1.035 N code = SPGR) [...] Bacteria (test code = None /HPF BACT) [id number] 23:52:00 Test Item Value Reference Range Interpretation [...] 0.00-0.01 N code = ETOHU) Comprehensive Metabolic [id number] 23:52:00 Test Item Value Reference Range Interpretation [...] National Kidney Foundation,http ://nkd ep.nih.gov CBC with [id number] 23:40:00 Test Item Value Reference Range Interpretation [...] code = ALYMPH) 3.3 K/cumm 0.5-4.6 N [place] Abs (test code = AMONO) 0.7 K/cumm 0.0-1.2 N Eos Abs (test code = AEOS) 0.20 K/cumm 0.00-0.74 N Baso Abs (test code = ABASO) 0.0 K/cumm 0.00-0.21 N
[2022-01-28] MEDS ORDERED: ACETAMINOPHEN 500 MG TAB ONE (23:02)
[2022-01-28] MEDS ORDERED: IBUPROFEN 400 MG TAB ONE (23:02)
--- NOTE | 2022-01-28 23:03 | ER ---
Nurse's Notes [facility] Name: Sal Davies Age: 26 yrs Sex: Male : 1995 Arrival Date: 01/28/2022 Time: 21:42 Bed Waiting Private MD: Diagnosis: Strain of muscle, fascia and tendon of the posterior muscle group at thigh level, left thigh, initial encounter Presentation: 01/28 22:50 Chief complaint: Patient states: "I was outside playing at the baseball field. I tw5 slipped and just felt something ripped. I took a couple of steps and I just had to lay down. It is all in the back of the left leg.". Coronavirus screen: Vaccine status: Patient reports receiving the 2nd dose of the covid vaccine. [employer]. Ebola Screen: Patient negative for fever greater than or equal to 101.5 degrees Fahrenheit, and additional compatible Ebola Virus Disease symptoms Patient denies exposure to infectious person. Patient denies travel to an Ebola-affected area in the 21 days before illness onset. Initial Sepsis Screen: Does the patient meet any 2 criteria? No. Patient's initial sepsis screen is negative. Does the patient have a suspected source of infection? No. Patient's initial sepsis screen is negative. Risk Assessment: Do you want to hurt yourself or someone else? Patient reports no desire to harm self or others. Onset of symptoms was January 28, 2022 at 17:00. 22:50 Method Of Arrival: Ambulatory tw5 22:50 Acuity: ASHLEIGH 4 tw5 Triage Assessment: 23:07 General: Appears uncomfortable, Behavior is calm, cooperative, appropriate for age. tw5 Pain: Pain currently is 6 out of 10 on a pain scale. Historical: - PMHx: 22:53 Anxiety; Depression; tw5 - PSHx: 22:53 Appendectomy; Tonsillectomy; tw5 - Immunization history:: Flu vaccine is not up to date. - Social history:: Smoking status: unknown. Screenin:07 Abuse screen: Denies threats or abuse. Denies injuries from another. Nutritional tw5 screening: No deficits noted. Tuberculosis screening: No symptoms or risk factors identified. Fall Risk Fall in past 12 months (25 points). Vital Signs: 22:50 BP 136 / 96; Pulse 91; Resp 18; Temp 98.8(O); Pulse Ox 100% on R/A; Weight 88.45 kg; tw5 Height 5 ft. 5 in. (165.10 cm); Pain 8/10; 22:50 Body Mass Index 32.45 (88.45 kg, 165.10 cm) tw5 ED Course: 21:42 Patient arrived in ED. kz 22:36 Jignesh Camp PA is PHCP. cp 22:48 Jignesh Novak MD is Attending Physician. cp 22:52 Triage completed. tw5 23:01 Steve Gant MD is Referral Physician. cp 23:02 No provider procedures requiring assistance completed. Patient did not have IV access tw5 during this emergency room visit. Cabrera wrap to upper left leg. 23:07 Patient has correct armband on for positive identification. tw5 23:07 Arm band placed on. tw5 Administered Medications: 22:59 Drug: Ibuprofen 600 mg Route: PO; tw5 23:08 Follow up: Response: No adverse reaction; Medication administered at discharge. tw5 22:59 Drug: Acetaminophen 1000 mg Route: PO; tw5 23:08 Follow up: Response: No adverse reaction; Medication administered at discharge. tw5 Medication: 23:07 VIS not applicable for this client. tw5 Outcome: 23:02 Discharge ordered by . cp 23:02 Discharged to home with crutches. tw5 23:02 Condition: good 23:02 Discharge instructions given to patient, Instructed on discharge instructions, follow up and referral plans. crutch walking, Demonstrated understanding of instructions, follow-up care, crutch walking. 23:08 Patient left the ED. tw5 Signatures: Jignesh Camp PA PA Tarah Cartagena tw5 Radha Cortés k
--- NOTE | 2022-01-28 23:03 | EDPHYS ---
Physician Documentation [facility] Name: Sal Davies Age: 26 yrs Sex: Male : 1995 Arrival Date: 01/28/2022 Time: 21:42 Bed Waiting Private MD: ED Physician Jignesh Novak HPI: 01/28 22:55 This 26 yrs old Black Male presents to ER via Ambulatory with complaints of Leg Pain. cp 22:55 The patient presents with an injury, pain, that is acute. The complaints affect the cp left hamstring. Context: resulted from playing sports, baseball, the patient can fully bear weight, the patient is able to ambulate, with moderate difficulty, Problem is a result from a previous injury: No. Onset: The symptoms/episode began/occurred today, about 1700. Associated signs and symptoms: Pertinent positives: numbness, weakness, radiating pain down leg, Pertinent negatives fever. Treatment prior to arrival includes: no previous treatment. Severity of symptoms: in the emergency department the symptoms are unchanged, despite home interventions. Patient reports he was playing baseball with children when he went to [facility] and felt immediate pain to left hamstring. Historical: - PMHx: 22:53 Anxiety; Depression; tw5 - PSHx: 22:53 Appendectomy; Tonsillectomy; tw5 - Immunization history:: Flu vaccine is not up to date. - Social history:: Smoking status: unknown. ROS: 22:57 Constitutional: Negative for fever. cp 22:57 Respiratory: Negative for cough, shortness of breath, wheezing. 22:57 Abdomen/GI: Negative for abdominal pain, nausea, vomiting, and diarrhea. 22:57 Back: Negative for pain at rest, pain with movement. 22:57 MS/extremity: Positive for pain, paresthesias, tenderness, of the left hamstring. 22:57 Neuro: Positive for numbness, weakness, of the left hamstring, Negative for headache. 22:57 All other systems are negative. Exam: 22:59 Head/Face: Normocephalic, atraumatic. cp 22:59 Constitutional: The patient appears in no acute distress, alert, awake, non-toxic, well developed, well nourished, uncomfortable. 22:59 Eyes: Periorbital structures: appear normal, Conjunctiva: normal, no exudate, no injection, Sclera: no appreciated abnormality, Lids and lashes: appear normal, bilaterally. 22:59 Musculoskeletal/extremity: Extremities: grossly normal except: noted in the left hamstring: pain, tenderness, painful ROM, Perfusion: the extremity is normally perfused throughout, the left hamstring numbness, Achilles tendon palpated and intact. Vital Signs: 22:50 BP 136 / 96; Pulse 91; Resp 18; Temp 98.8(O); Pulse Ox 100% on R/A; Weight 88.45 kg; tw5 Height 5 ft. 5 in. (165.10 cm); Pain 8/10; 22:50 Body Mass Index 32.45 (88.45 kg, 165.10 cm) tw5 MDM: 23:02 Patient medically screened. cp 23:02 Data reviewed: vital signs, nurses notes. cp 23:02 Counseling: I had a detailed discussion with the patient and/or guardian regarding: the cp historical points, exam findings, and any diagnostic results supporting the discharge/admit diagnosis, the need for outpatient follow up, a orthopedic surgeon, to return to the emergency department if symptoms worsen or persist or if there are any questions or concerns that arise at home. 01/28 22:54 Order name: Crutches; Complete Time: 23:02 tw5 01/28 22:54 Order name: Cabrera Wrap; Complete Time: 23:02 tw5 Administered Medications: 22:59 Drug: Ibuprofen 600 mg Route: PO; tw5 23:08 Follow up: Response: No adverse reaction; Medication administered at discharge. tw 22:59 Drug: Acetaminophen 1000 mg Route: PO; tw5 23:08 Follow up: Response: No adverse reaction; Medication administered at discharge. tw5 Disposition Summary: 01/28/22 23:02 Discharge Ordered Location: Home cp Problem: new cp Symptoms: have improved cp Condition: Stable cp Diagnosis - Strain of muscle, fascia and tendon of the posterior muscle group at thigh level, cp left thigh, initial encounter Followup: cp - With: Steve Gant MD - When: 2 - 3 days - Reason: Worsening of condition Discharge Instructions: - Discharge Summary Sheet cp - Hamstring Strain cp - RICE Therapy for Routine Care of Injuries cp Forms: - Medication Reconciliation Form cp - Thank You Letter cp - Antibiotic Education cp - Prescription Opioid Use cp - Work release form tw5 Prescriptions: - Naprosyn 500 mg Oral Tablet - take 1 tablet by ORAL route 2 times per day take with food; 20 tablet; Refills: cp 0, Product Selection Permitted Signatures: Jignesh Camp PA PA cp Wood, Tiffany tw5
[2022-01-28 23:38] VITALS: BP 136/96; TEMP 98.8; O2SAT 100
== END 2022-01-28 23:08 | disposition home or self-care (01) ==
LOC: ER 21:39
DX: S76.312A Strain of muscle, fascia and tendon of the posterior muscle group at thigh level, left thigh, initial encounter (principal); Y93.64 Activity, baseball
CPT/HCPCS: 99283

== ENCOUNTER 2022-10-04 07:30 | Emergency (ER) | payer SELFPAY ==
--- OUTSIDE RECORDS SUMMARY | 2022-10-04 07:33 | XMS REPORT | Continuity of Care Document ---
:1995 Author Organization [facility] t Address [address] [place] [address] Care Team Providers Name Role Phone UNKNOWN, REFFERING Primary Care Physician Unavailable JOSELITO GAMEZ M.D., JOSELITO Phillips M.D. Attending Clinician Unavailable JOSELITO GAMEZ M.D., JOSELITO Phillips M.D. Admitting Clinician Unavailable Problems This patient [...] code = TSH) 3.460 mIU/mL 0.270-4.200 Lipid [id number] 08:24:38 Test Item Value Reference Range Interpretation Comments Cholesterol Total 156 mg/dL 0-200 RISK OF HE ART (test code = DISEASEPublishe d by Cholesterol Total) [place] [employer] Janeth lyte Optimal Borderl ine Increased RiskC HOL <200 200-239 >240TRI G <150 150-199 >200HDL Male >60 <40HDL Fema le >60 <50LDL <100 130 -159 >160LDL Near op timal is 100-129 Triglycerides (test 117 mg/dL 9-200 [...] is LDL/HDL Ratio=L DL Calc/HDL Chol Urinalysis [id number] 23:54:00 Test Item Value Reference Range Interpretation Comments Color (test code = COLOR) Yellow Yellow,Straw,Pl N yellow Clarity (test code = Clear Clear N CLAR) Specific [place] (test 1.026 1.001-1.035 N code = SPGR) [...] Bacteria (test code = None /HPF BACT) [id number] 23:52:00 Test Item Value Reference Range Interpretation [...] 0.00-0.01 N code = ETOHU) Comprehensive Metabolic [id number] 23:52:00 Test Item Value Reference Range Interpretation [...] is not provided , and the patient isAfnaean-Amanette can, multiply by 1.2 12. If sex is not prov ided, and thepatient is female, multipl y by 0.742. Results for patients <18 ye ars ofage have not been validated by th e MDRD study and shoul d be interpretedwith caution.eGFR Re sult Interpretation: eGFR > or = 60 is in t he Normal RangeeGF R < 60 may mean kidney diseaseeGFR < 1 5 may mean kidney failureRange s recommended by the National Kidney Foundation,http ://nkd ep.nih.gov CBC with [id number] 23:40:00 Test Item Value Reference Range Interpretation [...] code = ALYMPH) 3.3 K/cumm 0.5-4.6 N Hand Abs (test code = AMONO) 0.7 K/cumm 0.0-1.2 N Eos Abs (test code = AEOS) 0.20 K/cumm 0.00-0.74 N Baso Abs (test code = ABASO) 0.0 K/cumm 0.00-0.21 N
[2022-10-04] MEDS ORDERED: IBUPROFEN 200 MG TAB PO ONE (07:44)
[2022-10-04] MEDS ORDERED: CYCLOBENZAPRINE 10 MG TAB ONE (07:44)
--- NOTE | 2022-10-04 08:39 | RAD REPORT ---
EXAM DESCRIPTION: RAD - Lumbar Spine 3 Views - 10/04/2022 8:27 am CLINICAL HISTORY: PAIN COMPARISON: No comparisons FINDINGS: A three-view lumbar spine examination was performed. Lumbar bodies are normal in height. L5 spondylolysis is present with grade 1 spondylolisthesis. Lumba r alignment is otherwise normal. No fracture or acute bony process seen. No disc space narrowing. No other significant findings. No pars defects identified. IMPRESSION: L5 spondylolysis with grade 1 spondylolisthesis. No acute lumbar spine findings. The L5 subluxation can result in foraminal stenosis and/or central spinal stenosis at the L5-S1 disc level. Follow-up outpatient MR imaging can be performed as warranted for more detailed assessment of the central canal, foramina and discs.
--- NOTE | 2022-10-04 08:49 | ER ---
Nurse's Notes [facility] Name: Sal Davies Age: 26 yrs Sex: Male : 1995 Arrival Date: 10/04/2022 Time: 07:32 Bed IW1 Private MD: Diagnosis: Low back pain;Muscle spasm;Fall on same level, unspecified Presentation: 10/04 07:37 Chief complaint: Patient states: low back pain that is worse on the R after falling ss while rollerblading Monday. Coronavirus screen: Client denies travel out of the [place] in the last 14 days. Ebola Screen: Patient denies exposure to infectious person. Patient denies travel to an Ebola-affected area in the 21 days before illness onset. Initial Sepsis Screen: Does the patient meet any 2 criteria? No. Patient's initial sepsis screen is negative. Does the patient have a suspected source of infection? No. Patient's initial sepsis screen is negative. Risk Assessment: Do you want to hurt yourself or someone else? Patient reports no desire to harm self or others. Onset of symptoms was October 01, 2022. 07:37 Method Of Arrival: Ambulatory ss 07:37 Acuity: ASHLEIGH 4 ss Historical: - Allergies: 07:39 No Known Allergies; ss - Home Meds: 07:39 None [Active]; ss - PMHx: 07:39 Anxiety; Depression; ss - PSHx: 07:39 Tonsillectomy; Appendectomy; ss - Immunization history:: Client reports receiving the 2nd dose of the Covid vaccine. - Social history:: Smoking status: Patient denies any tobacco usage or history of. Screenin:[address] [facility] ED Fall Risk Assessment (Adult) History of falling in the last 3 months, ss including since admission No falls in past 3 months (0 pts). Abuse screen: Denies threats or abuse. Denies injuries from another. Nutritional screening: No deficits noted. Tuberculosis screening: Never had TB. Assessment: 07:45 General: Appears in no apparent distress. comfortable, Behavior is calm, cooperative, ss Denies fever, feeling ill, fatigue, chills. Pain: Complains of pain in sacrum and right low back Pain currently is 7 out of 10 on a pain scale. Quality of pain is described as aching, tender, Is continuous. Neuro: Level of Consciousness is awake, alert, obeys commands, Oriented to person, place, time, situation. Respiratory: Airway is patent Respiratory effort is even, unlabored, Respiratory pattern is regular, symmetrical. Derm: Skin is intact, is healthy with good turgor, Skin is pink, warm \T\ dry. normal. Musculoskeletal: Range of motion: intact in all extremities. Vital Signs: 07:37 BP 151 / 108; Pulse 90; Resp 16; Temp 97.9(TE); Pulse Ox 100% on R/A; Weight 97.52 kg; ss Height 5 ft. 5 in. (165.10 cm); Pain 7/10; 07:37 Body Mass Index 35.78 (97.52 kg, 165.10 cm) ED Course: 07:32 Patient arrived in ED. rg4 07:33 Michael Agrawal DO is Attending Physician. ms3 07:39 Triage completed. ss 07:39 Arm band placed on right wrist. ss 07:45 Maryana Barron RN is Primary Nurse. ss 07:45 Patient has correct armband on for positive identification. ss 08:28 Lumbar Spine (3 Views) XRAY In Process Unspecified. EDMS 08:49 Kaz Schultz DO is Referral Physician. ms3 08:58 No provider procedures requiring assistance completed. Patient did not have IV access ss during this emergency room visit. Administered Medications: 07:44 Drug: Flexeril (cyclobenzaprine) 10 mg Route: PO; ss 07:44 Drug: Ibuprofen 600 mg Route: PO; Medication: 07:45 VIS not applicable for this client. Outcome: 08:49 Discharge ordered by . ms3 08:58 Discharged to home ambulatory. ss 08:58 Condition: good 08:58 Discharge instructions given to patient, Instructed on discharge instructions, follow up and referral plans. Demonstrated understanding of instructions, follow-up care, medications, Prescriptions given X 2. 08:59 Patient left the ED. Signatures: Dispatcher [employer] EDNV Maryana Barron RN RN ss Garcia, Rubi rg4 Michael Agrawal DO DO ms3
--- NOTE | 2022-10-04 08:49 | EDPHYS ---
Physician Documentation [facility] Name: Sal Davies Age: 26 yrs Sex: Male : 1995 Arrival Date: 10/04/2022 Time: 07:32 Bed IW1 Private MD: ED Physician Michael Agrawal HPI: 10/04 07:38 This 26 yrs old Black Male presents to ER via Unassigned with complaints of Low Back ms3 Pain. 07:38 26-year-old male with no past medical history presents for right-sided lower back pain ms3 status post falling on his buttocks while skating on Monday. Patient states the pain is an 8/10 and aching. Patient denies alleviating or inciting factors. Patient denies incontinence, numbness, weakness.. Historical: - Allergies: 07:39 No Known Allergies; ss - Home Meds: 07:39 None [Active]; ss - PMHx: 07:39 Anxiety; Depression; ss - PSHx: 07:39 Tonsillectomy; Appendectomy; ss - Immunization history:: Client reports receiving the 2nd dose of the Covid vaccine. - Social history:: Smoking status: Patient denies any tobacco usage or history of. ROS: 07:38 Constitutional: Negative for fever, and chills. Neck: Negative for injury, pain, and ms3 swelling, Cardiovascular: Negative for chest pain, and palpitations. Respiratory: Negative for shortness of breath, cough, wheezing, and pleuritic chest pain, Abdomen/GI: Negative for abdominal pain, nausea, vomiting, diarrhea, and constipation. 07:38 Back: Positive for low back pain. 07:38 All other systems are negative. Exam: 07:38 Constitutional: This is a well developed, well nourished patient who is awake, alert, ms3 and in no acute distress. Head/Face: Normocephalic, atraumatic. Neck: Trachea midline, no cervical lymphadenopathy. Supple, full range of motion without nuchal rigidity, or vertebral point tenderness. No Meningismus. Chest/axilla: Normal chest wall appearance and motion. Nontender with no deformity. Cardiovascular: Regular rate and rhythm with a normal S1 and S2. No gallops, murmurs, or rubs. Normal PMI, no JVD. No pulse deficits. Respiratory: Lungs have equal breath sounds bilaterally, clear to auscultation and percussion. No rales, rhonchi or wheezes noted. No increased work of breathing, no retractions or nasal flaring. Abdomen/GI: Soft, non-tender, with normal bowel sounds. No distension or tympany. No guarding or rebound. No evidence of tenderness throughout. Skin: Warm, dry with normal turgor. Normal color with no rashes, no lesions, and no evidence of cellulitis. MS/ Extremity: Pulses equal, no cyanosis. Neurovascular intact. Full, normal range of motion. Neuro: Awake and alert, GCS 15, oriented to person, place, time, and situation. Cranial nerves II-XII grossly intact. Motor strength 5/5 in all extremities. Sensory grossly intact. Cerebellar exam normal. Normal gait. 07:38 Back: pain, that is mild, ROM is normal, normal spinal alignment noted, muscle spasm, is appreciated in the right low back. Vital Signs: 07:37 BP 151 / 108; Pulse 90; Resp 16; Temp 97.9(TE); Pulse Ox 100% on R/A; Weight 97.52 kg; ss Height 5 ft. 5 in. (165.10 cm); Pain 7/10; 07:37 Body Mass Index 35.78 (97.52 kg, 165.10 cm) ss MDM: 07:38 Differential diagnosis: strain, fracture, contusion. ms3 07:43 Patient medically screened. ms3 08:49 Data reviewed: vital signs, nurses notes, radiologic studies, and as a result, I will ms3 discharge patient. I considered the following discharge prescriptions or medication management in the emergency department Medications were administered in the Emergency Department. See MAR. Test considered but Not performed: Labs: Patient without fevers, chills. Labs not warranted at this time.. Care significantly affected by the following Social Determinants of Health: Poor access to healthcare and/or lack of insurance. Counseling: I had a detailed discussion with the patient and/or guardian regarding: the historical points, exam findings, and any diagnostic results supporting the discharge/admit diagnosis, radiology results, the need for outpatient follow up, to return to the emergency department if symptoms worsen or persist or if there are any questions or concerns that arise at home. ED course: Discussed x-ray findings with patient. Discussed with patient need for outpatient MRI. Patient understands agrees with plan. All questions were answered. Return precautions discussed include worsening symptoms, or any other concerns. On reevaluation patient is alert and oriented x4, in no apparent distress, nontoxic, ambulatory in emergency department. Patient given prescription for Flexeril and ibuprofen.. 10/04 07:38 Order name: Lumbar Spine (3 Views) XRAY; Complete Time: 08:46 ms3 Administered Medications: 07:44 Drug: Flexeril (cyclobenzaprine) 10 mg Route: PO; ss 07:44 Drug: Ibuprofen 600 mg Route: PO; ss Disposition Summary: 10/04/22 08:49 Discharge Ordered Location: Home ms3 Condition: Stable ms3 Diagnosis - Low back pain ms3 - Muscle spasm ms3 - Fall on same level, unspecified ms3 Followup: ms3 - With: Kaz Schultz DO - When: 2 - 3 days - Reason: Recheck today's complaints Discharge Instructions: - Discharge Summary Sheet ss - Acute Back Pain, Adult ms3 Forms: - Work release form ss - Medication Reconciliation Form ms3 - Thank You Letter ms3 - Antibiotic Education ms3 - Prescription Opioid Use ms3 Prescriptions: - Ibuprofen 600 mg Oral Tablet - take 1 tablet by ORAL route every 6 hours As needed take with food; 30 tablet; ms3 Refills: 0, Product Selection Permitted - Cyclobenzaprine 10 mg Oral Tablet - take 1 tablet by ORAL route every 8 hours As needed; 30 tablet; Refills: 0, ms3 Product Selection Permitted Signatures: Dispatcher [employer] Maryana Howard RN RN ss Sims, Marcus, DO DO ms3
[2022-10-04 09:04] VITALS: BP 151/108; TEMP 97.9; O2SAT 100
== END 2022-10-04 08:59 | disposition home or self-care (01) ==
LOC: ER 07:30
DX: M62.830 Muscle spasm of back (principal); W18.30XA Fall on same level, unspecified, initial encounter
CPT/HCPCS: 72100; 99283

== ENCOUNTER 2024-12-29 01:03 | Emergency (ER) | payer BC, SELFPAY ==
--- OUTSIDE RECORDS SUMMARY | 2024-12-29 01:06 | XMS REPORT | Continuity of Care Document ---
Author Name Unknown Address [address] [facility] [place] [address] [facility] Address [address] [facility] [address] [facility] [place] [address] Care Team Providers Care Reclamation Engineer Name Role Phone UNKNOWN, REFFERING Primary Care Physician Lety Packer, Generic Provider Attending Clinician Unavailable FLIP LEVIN Attending Clinician Unavailable FLIP LEVIN Attending Clinician Unavailable Flip Levin MD Attending Clinician Hilda Mc DO Attending Clinician HILDA MC Attending Clinician Unavailab JOSELITO Melo M.D., Justino HANSON Clinician Unavailable JOSELITO JOINER M.D., Justino HANSON Clinician Unavailable Payers Payer Name Policy Type Policy Number Effective Date Expirati on Date Source Problems Condition Name Condition Details Condition Category Status Onset Date Resolution Date Last Treatment Date Treating Clinician Comments Source Closed fracture of angle of jaw Closed fracture of angle of jaw Disease Active 10-24 00:00: 00 [facility] Abnormal involuntar y movement Abnormal involuntar y movement Disease Active 10-24 00:00: 00 Overview: Formattin g of this note might be different from the original. 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 [facility] Allergies, Adverse Reactions, Alerts Allergy Name Allergy Type Status Severity Reaction(s) Onset Date Inactive Date Treating Clinician Comments Source NO KNOWN ALLERGIE S Drug Class Active [facility] Social History Social Habit Start Date Stop Date Quantity Comments Source Sexual orientation [facility] Sex assigned at 1995 00:00:00 1995 00:00:00 [facility] Smoking Status Start Date Stop Date Source Tobacco smoking consumption unknown [facility] Medications Ordered Medication Name Filled Medication Name Start Date Stop Date Current Medication? Ordering Clinician Indication Dosage Frequency Signature (SIG) Comments Components Source ketorolac (TORADOL) injection 30 mg 2023-0915 10:45: 00 06-25 09:48 :00 No 30mg 30 mg, Slow IV Push, ONCE, 1 dose, On Mon06/25/24 at 0545, Routine [facility] ondansetron (ZOFRAN (PF)) injection 4 mg 2023-09 10:00: 00 06-25 09:48 :00 No 4mg 4 mg, Slow IV Push, ONCE, 1 dose, On Mon06/25/24 at 0500, GONZÁLEZ [facility] dicyclomine 20 mg tablet 2023-09 00:00: 00 Yes [id number] 20mg Take 1 tablet by mouth every 6 (six) hours as needed for Abdominal pain. [facility] ondansetron (ZOFRAN) 4 mg tablet 2023-0915 00:00: 00 Yes [id number] 4mg Take 1 tablet by mouth every 8 (eight) hours as needed for Nausea and Vomiting (N/V). [facility] penicillin g benzathine (BICILLIN L-A) injection 1.2 Million Units 2022-09 14:00: 00 09-08 14:02 :00 No 1.210 1.2 Million Units, Intramuscu lar, ONCE, 1 dose, On Mon09/08/23 at 0800, GONZÁLEZ
Re ason for Anti-Infec tive: Documented Infection< br>Documen fabio Infection Site: HEENT
D uration of Therapy: Other (see Comments) [facility] chlorhexidi ne (PERIDEX) 0.12 % mouthwash 10-24 00:00: 00 Yes 15mL Swish and spit out 15 mL 2 (two) times daily. [facility] metroNIDAZO LE (FLAGYL) 500 mg tablet 10-24 00:00: 00 Yes 500mg Take 1 Tab by mouth 2 (two) times daily. [facility] acetaminoph en-codeine (TYLENOL-CO DEINE #3) 300-30 mg tablet 10-24 00:00: 00 Yes 1{tbl} Take 1 Tab by mouth every 6 (six) hours as needed for Pain unrelieved by non-narcot ic analgesics . [facility] chlorhexidi ne (PERIDEX) 0.12 % mouthwash 10-24 00:00: 00 Yes 15mL Swish and spit out 15 mL 2 (two) times daily. [facility] Vital Signs Vital Name Observation Time Observation Value Comments S ourdonya Systolic blood pressure 2024-06-25 11:00:00 139 mm[Hg] [facility] Diastolic blood pressure 2024-06-25 11:00:00 86 mm[Hg] [facility] Heart rate 2024-06-25 11:00:00 67 /min [facility] Respiratory rate 2024-06-25 11:00:00 16 /min [facility] Oxygen saturation in Arterial blood by Pulse oximetry 2024-06-25 11:00:00 96 /min [facility] Body temperature 2024-06-25 09:26:05 36.78 Shana [facility] Body height 2024-06-25 09:23:00 165.1 cm [facility] Body weight 2024-06-25 09:23:00 97.523 kg [facility] BMI 2024-06-25 09:23:00 35.78 kg/m2 [facility] Systolic blood pressure 2023-09-08 13:28:00 168 mm[Hg] [facility] Diastolic blood pressure 2023-09-08 13:28:00 114 mm[Hg] [facility] Heart rate 2023-09-08 13:28:00 103 /min [facility] Body temperature 2023-09-08 13:28:00 36.61 Shana [facility] Respiratory rate 2023-09-08 13:28:00 16 /min [facility] Body height 2023-09-08 13:28:00 165.1 cm [facility] Body weight 2023-09-08 13:28:00 99.791 kg [facility] BMI 2023-09-08 13:28:00 36.61 kg/m2 [facility] Oxygen saturation in Arterial blood by Pulse oximetry 2023-09-08 13:28:00 96 /min [place] [facility] Procedures Procedure Date / Time Performed Performing Clinicia n Source LIPASE 2024-06-25 09:47:00 Flip Levin [facility] COMP. METABOLIC PANEL (21906) 2024-06-25 09:47:00 Flip Levin [facility] CBC WITH DIFF 2024-06-25 09:47:00 Flip Levin [facility] ASSIGNMENT OF BENEFITS 2023-09-08 13:52:38 Docto r Unassigned, [place]ick [facility] RAPID STREP SCREEN FOR GROUP A 2023-09-08 13:33:00 Hilda Mc [facility] CONSENT/REFUSAL FOR DIAGNOSIS AND TREATMENT 2023-09-08 13:26:18 Doctor Unassigned, [place] [facility] NOTICE OF PRIVACY PRACTICES 2023-09-08 13:24:53 Doctor Unassigned, [place] [facility] Encounters Start Date/Time End Date/Time Encounter Type Admission Type Attending Clinicians Care Facility Care Department Encounter ID Source 2024-07-03 00:00:00 2024-07-03 10:58:01 Letter (Out) Campaigns, Generic Provider Campaigns, Generic Provider [facility] ([facility]) [id number] [facility] 2024-06-25 04:24:00 2024-06-25 06:51:00 Emergency X FLIP LEVIN WAKILI [facility] ERT [id number] [facility] 2024-06-25 04:24:00 2024-06-25 06:51:00 Emergency Flip Levin [facility] [id number] [facility] 2023-09-08 07:32:00 2023-09-08 08:25:00 Emergency Hilda Mc [facility] [id number] [facility] 2023-09-08 07:32:00 2023-09-08 08:25:00 Emergency X HILDA MC [facility] ERT [id number] [facility] Results Test Description Test Time Test Comments Results Result Co mments Source [facility]24-[facility]-15 11:03:20* Test Item Value Reference Range Interpretation Comme nts LIPASE (test code = 6044282044) 66 U/L 0-220 Lab Interpretation (test cod e = 62568-6) Normal [facility] with [id number] 10:17:57* Test Item Value Reference Range Interpretation Comme nts WBC (test code = 6690-2) 6.66 4.20-10.70 RBC (test code = 789-8) 5.03 4.26-5.52 HGB (test code = 718-7) 15.0 g/dL 12.2-16.4 HCT (test code = 4544-3) 45.3 % 38.4-49.3 MCV (test code = 787-2) 90.1 fL 81.7-95.6 MCH (test code = 785-6) 29.8 pg 26.1-32.7 MCHC (test code = 786-4) 33.1 g/dL 31.2-35.0 RDW-SD (test code = 97541-9) 40.7 fL 38.5-51.6 RDW-CV (test code = 788-0) 12.4 % 12.1-15.4 PLT (test code = 777-3) 310 150-328 MPV (test code = 04501-1) 9.4 fL 9.8-13.0 L NRBC/100 WBC (test code = 0241008762) 0.0 0.0-10.0 NRBC x10^3 (test code = 6439635665) See_Comment [Automated messa ge] The system which generated this result transmitted reference range: 10*3/?L. The reference range was not used to interpret this result as normal/abnormal. GRAN MAT (NEUT) % (test code = 770-8) 54.5 % IMM GRAN % (test code = 0858048291) 0.30 % LYMPH % (test code = 736-9) 34.8 % MONO % (test code = 5905-5) 8.7 % EOS % (test code = 713-8) 1.4 % BASO % (test code = 706-2) 0.3 % GRAN MAT x10^3(ANC) (test code = 5785957731) 3.63 10*3/uL 1.99-6.95 IMM GRAN x10^3 (test code = 6063357448) 0.00-0.06 LYMPH x10^3 (test code = 731-0) 2.32 10*3/uL 1.09-3.23 MONO x10^3 (test code = 742-7) 0.58 10*3/uL 0.36-1.02 EOS x10^3 (test code = 711-2) 0.09 10*3/uL 0.06-0.53 BASO x10^3 (test code = 704-7) 0.01-0.09 Lab Interpretation (test code = 59681-1) Abnormal [facility] [id number] 08:35:00 * Test Item Value Reference Range Interpretation Comme nts TSH (test code = TSH) 3.460 mIU/mL 0.270-4.200 Lipid [id number] 08:24:38* Test Item Value Reference Range Interpretation Comme nts Cholesterol Total (test code = Cholesterol Total) 156 mg/dL 0-200 RISK OF HEART DISEASEPublished by [place] Heart Association Analyte Optimal Borderline Increased RiskCHOL <200 200-239 >240TRIG <150 150-199 >200HDL Male >60 <40HDL Female >60 <50LDL <100 130-159 >160LDL Near optimal is 100-129 Triglycerides (test code = Triglycerides) 117 mg/dL 9-200 HDL (test code = HDL) 38 mg/dL 40-60 L LDL (test code = LDL) 95 mg/dL 0-130 The equation being used in this calculation is LDL = (Chol - HDL) - (Trig / 5) VLDL (test code = VLDL) 23 mg/dL 5-40 The equation tc ng used in this calculation is VLDL = Trig / 5 Chol/HDL (test code = Chol/HDL) 4.1 ratio 0.0-5.0 LDL/HDL Ratio (test code = LDL/HDL Ratio) 3 N The equati on being used in this calculation is LDL/HDL Ratio=LDL Calc/HDL Chol Urinalysis [id number] 23:54:00* Test Item Value Reference Range Interpretation Comme nts Color (test code = COLOR) Yellow Yellow ,Straw,Pl yellow N Clarity (test code = CLAR) Clear Clear N Specific [place] (test code = SPGR) 1.026 1.001-1.035 N pH (test code = PH) 5.0 5.0-9.0 N Ketone (test code = KET) 5 mg/dL Negative A Glucose (test code = GLUCUR) Negative mg/dL Negative N Protein (test code = PROT) Negative mg/dL Negative N Bilirubin (test code = BILI) Negative mg/dL Negative N Occult Blood (test code = UDOB) Mod to Large Negative A Urobilinogen (test code = UROB) 0.2 mg/dL 0.2-1.0 N Nitrite (test code = NIT) Negative Negative N Leuk Esterase (test code = LEUK) Negative Negative N Micros Exam (test code = MEXAM) Indicated Epithelial Cells (test code = EPI) None /LPF 0-30 A WBC, Urine (test code = UWBC) 0-1 /HPF 0-5 A RBC, Urine (test code = URBC) 0-3 /HPF 0-5 A Bacteria (test code = BACT) None /HPF [id number] 23:52:00* Test Item Value Reference Range Interpretation Comme nts Amphetamine (test code = AMPH) POSITIVE Negative A For diagnostic purposes only, positive results should always be assessedin conjunctionwith the patient's medical history,clinical examination and otherfindings.To fulfill legal requirements, a more specific alternate chemical methodmust be used inorder to obtain a Confirmed analytical result. GC/MS is the preferred confirmatory method. Barbiturates (test code = DELMER) Negative Negative N Benzodiazepine (test code = VALENTINO) Negative Negative N Cocaine (test code = COCA) POSITIVE Negative A Methadone (test code = MTHD) Negative Negative N Opiates (test code = OPIA) Negative Negative N PCP (test code = PCP) Negative Negative N Propoxyphene (test code = PROPOX) Negative Negative N THC (test code = THC) POSITIVE Negative A Alcohol, Urine (test code = ETOHU) <0.01 g/dL 0.00-0.01 N Comprehensive Metabolic [id number] 23:52:00* Test Item Value Reference Range Interpretation Comme nts Sodium (test code = NA) 142 mmol/L 135-145 N Potassium (test code = K) 4.2 mmol/L 3.5-5.1 N Chloride (test code = CL) 105 mmol/L 98-105 N Carbon Dioxide (test code = CO2) 25 mmol/L 22-29 N Glucose (test code = GLU) 100 mg/dL 70-115 N Blood Urea Nitrogen (test code = BUN) 15 mg/dL 6-20 N Creatinine (test code = CREAT) 1.1 mg/dL 0.7-1.2 N Calcium (test code = CA) 9.6 mg/dL 8.3-10.5 N Prot Total (test code = TP) 6.7 g/dL 6.4-8.3 N Albumin (test code = ALB) 4.5 g/dL 3.5-5.2 N A/G Ratio (test code = AGRATIO) 2.0 Ratio Globulin (test code = GLOB) 2.2 2.9-3.1 L Bili Total (test code = TBIL) 0.2 mg/dL 0.1-0.9 N Alk Phos (test code = APHOS) 52 U/L 40-129 N AST (test code = AST) 32 U/L 1-40 N ALT (test code = ALT) 20 U/L 1-41 N BUN/Creatinine Ratio (test code = BCRATIO) 13.6 Anion Gap (test code = AGAP) 12 mmol/L 7-16 N Estimated GFR (test code = GFR) >60 mL/min/1.73m2 eGFR (estimated Glomerular Filtration Rate) is an estimated value,calculated from the patient's serum creatinine using the MDRD equation.It is NOT the patient's actual GFR. The eGFR provides a more clinicallyuseful measure of kidney disease than serum creatinine alone.This calculation takes sex and race into account, if the informationis provided. If the race is not provided, and the patient isAfrican-Dutch, multiply by 1.212. If sex is not provided, and thepatient is female, multiply by 0.742. Results for patients <18 years ofage have not been validated by the MDRD study and should be interpretedwith caution.eGFR Result Interpretation:eGFR > or = 60 is in the Normal RangeeGFR < 60 may mean kidney diseaseeGFR < 15 may mean kidney failureRanges recommended by the National Kidney Foundation,http://nkdep .nih.gov CBC with [id number] 23:40:00* Test Item Value Reference Range Interpretation Comme nts WBC (test code = WBC) 9.4 K/cumm [...] 11.5-14.5 N Platelet Count (test code = PLTCT) 303 K/cumm 140-440 N MPV (test code = MPV) 7.4 fL [...] code = ALYMPH) 3.3 K/cumm 0.5-4.6 N Butler Abs (test code = AMONO) 0.7 K/cumm 0.0-1.2 N Eos Abs (test code = AEOS) 0.20 K/cumm 0.00-0.74 N Baso Abs (test code = ABASO) 0.0 K/cumm 0.00-0.21 N Notes Date/Time Note Provider Source 2024-06-25 06:50:13 Pt given printed and verbal discharge instructions regarding gastroenteritis Pt verbalized understanding of instructions, pt awake alert oriented, resp reg unlabored, skin w/d, color appropriate for race, moves all ext well,pt encouraged to follow up with pcp Advised to seek medical attention for new/prolonged/worsening of symptoms No adverse reaction to meds given in ER noted upon discharge PIV d'cd, dressing to site, catheter in tact. Awake, alert oriented, resp reg unlabored, skin w/d, pt leaving amb with steady gait, in no apparent distress [facility] 2024-06-25 04:22:10 C/o nausea, vomiting, and diarrhea x2 days ST Rosita Quinonez RN [facility] 2024-06-25 04:19:00 [facility] Emergency Department Note Patient Name: Jeremias Davies Date of : 1995 28 year old male Treatment Room: TX1/TX1 Primary Care Physician: PATIENT DOES NOT HAVE A PCP Patient Escorted by: Self [9] Mode of Arrival: Personal means [1] EMS Treatment Prior to ED Arrival: RADIOLOGY SERVICES MANAGER treatment: None Travel and Exposure Screening: Symptoms Does patient have any of these symptoms?: (not recorded) Exposure Screening Has patient had contact with someone with a communicable disease in the last month?: (not recorded) Diseases exposed to:: (not recorded) Is Patient ?: (not recorded) Exposure Date: (not recorded) Chief Complaint: Chief Complaint Patient presents with Vomiting History of Present Illness: Jeremias Davies is a 28 year old male who presents to the ED with N/V/D X 2 days. Pt reports that his one-year old daughter started with N/V/D followed by his spouse and he began having same symptoms two day ago. No fever or chills. No travel hx. No recent use of abx. Vomitus non projectile, non bilous. No hematemesis. No blood ins stools. No known exposure to bad food. Pt report sthat he is unable to hold anything down, not even water, prompting ED visit History provided by: Medical records and patient social media community manager used: No Vomiting Severity: Severe Duration: 2 days Timing: Intermittent Quality: Stomach contents Progression: Unchanged Chronicity: New Recent urination: Decreased Context: not post-tussive and not self-induced Relieved by: None tried Worsened by: Food smell Ineffective treatments: None tried Associated symptoms: diarrhea Associated symptoms: no abdominal pain, no arthralgias, no chills, no cough, no fever, no headaches, no myalgias, no sore throat and no URI Risk factors: sick contacts Risk factors: no alcohol use, no diabetes, no prior abdominal surgery, no suspect food intake and no travel to endemic areas Past Medical History/Immunizations: None Tetanus received in last 5 years: No Childhood immunizations: Up-to-date Allergies: No Known Allergies Past Social History: Substance & Sexual Activity No substance use or sexual activity history on file. Past Surgical History: Tonsillectomy Appendectomy Review of Systems: Review of Systems Constitutional: Negative. Negative for chills and fever. HENT: Negative. Negative for sore throat. Eyes: Negative. Respiratory: Negative. Negative for cough and wheezing. Breasts: Negative. Cardiovascular: Negative. Gastrointestinal: Positive for diarrhea, nausea and vomiting. Negative for abdominal distention, abdominal pain, anal bleeding, blood in stool, constipation and rectal pain. Genitourinary: Negative. Musculoskeletal: Negative. Negative for arthralgias and myalgias. Skin: Negative. Neurological: Negative. Negative for headaches. Psychiatric/Behavioral: Negative. All other systems reviewed and are negative. Endocrine: Endocrine negative Physical Exam: ED Triage Vitals [06/25/24 0423] Weight 97.5 kg (215 lb) Actual or estimated Actual Height 1.651 m (5' 5") BP (!) 136/98 Pulse 80 Resp 17 Temp 36.8 ?C (98.2 ?F) Temp source Oral SpO2 97 % Measured on Room air Physical Exam Vitals and nursing note reviewed. Constitutional: General: He is not in acute distress. Appearance: Normal appearance. He is well-developed. He is obese. He is not ill-appearing, toxic-appearing or diaphoretic. HENT: Head: Normocephalic and atraumatic. Nose: Nose normal. No congestion or rhinorrhea. Mouth/Throat: Mouth: Mucous membranes are moist. Pharynx: Oropharynx is clear. No posterior oropharyngeal erythema. Eyes: General: No scleral icterus. Right eye: No discharge. Left eye: No discharge. Extraocular Movements: Extraocular movements intact. Conjunctiva/sclera: Conjunctivae normal. Pupils: Pupils are equal, round, and reactive to light. Cardiovascular: Rate and Rhythm: Normal rate and regular rhythm. Pulses: Normal pulses. Heart sounds: Normal heart sounds. No murmur heard. Pulmonary: Effort: Pulmonary effort is normal. No respiratory distress. Breath sounds: Normal breath sounds. No stridor. No wheezing, rhonchi or rales. Chest: Chest wall: No tenderness. Abdominal: General: Bowel sounds are normal. There is no distension. Palpations: Abdomen is soft. There is no mass. Tenderness: There is no abdominal tenderness. There is no right CVA tenderness, left CVA tenderness, guarding or rebound. Hernia: No hernia is present. Musculoskeletal: General: No swelling, tenderness, deformity or signs of injury. Normal range of motion. Cervical back: Normal range of motion and neck supple. No rigidity or tenderness. Right lower leg: No edema. Left lower leg: No edema. Lymphadenopathy: Cervical: No cervical adenopathy. Skin: General: Skin is warm and dry. Capillary Refill: Capillary refill takes less than 2 seconds. Coloration: Skin is not jaundiced or pale. Findings: No bruising, erythema, lesion or rash. Neurological: General: No focal deficit present. Mental Status: He is alert and oriented to person, place, and time. Cranial Nerves: No cranial nerve deficit. Sensory: No sensory deficit. Motor: No weakness. Coordination: Coordination normal. Gait: Gait normal. Deep Tendon Reflexes: Reflexes normal. Psychiatric: Behavior: Behavior normal. Thought Content: Thought content normal. Judgment: Judgment normal. Radiology: No orders to display Lab Results: Lab Results CBC WITH DIFF - Abnormal Result Value Ref Range WBC 6.66 4.20 - 10.70 10*3/?L RBC 5.03 4.26 - 5.52 10*6/?L HGB 15.0 12.2 - 16.4 g/dL HCT 45.3 38.4 - 49.3 % MCV 90.1 81.7 - 95.6 fL MCH 29.8 26.1 - 32.7 pg MCHC 33.1 31.2 - 35.0 g/dL RDW-SD 40.7 38.5 - 51.6 fL RDW-CV 12.4 12.1 - 15.4 % PLT 310 150 - 328 10*3/?L MPV 9.4 (*) 9.8 - 13.0 fL NRBC/100 WBC 0.0 0.0 - 10.0 /100 WBCs NRBC x10 3 <0.01 10*3/?L GRAN MAT (NEUT) % 54.5 % IMM GRAN % 0.30 % LYMPH % 34.8 % MONO % 8.7 % EOS % 1.4 % BASO % 0.3 % GRAN MAT x10 3 (ANC) 3.63 1.99 - 6.95 10*3/uL IMM GRAN x10 3 <0.03 0.00 - 0.06 10*3/uL LYMPH x10 3 2.32 1.09 - 3.23 10*3/uL MONO x10 3 0.58 0.36 - 1.02 10*3/uL EOS x10 3 0.09 0.06 - 0.53 10*3/uL BASO x10 3 <0.03 0.01 - 0.09 10*3/uL COMP. METABOLIC PANEL (97614) - Abnormal NA 138 135 - 145 mmol/L K 3.6 3.5 - 5.0 mmol/L CL 106 98 - 108 mmol/L CO2 TOTAL 22 (*) 23 - 31 mmol/L AGAP 10 2 - 16 BUN 12 7 - 23 mg/dL GLUCOSE 134 (*) 70 - 110 mg/dL CREATININE 0.85 0.60 - 1.25 mg/dL TOTAL BILI 0.6 0.1 - 1.1 mg/dL CALCIUM 9.0 8.6 - 10.6 mg/dL T PROTEIN 7.5 6.3 - 8.2 g/dL ALBUMIN 4.7 3.5 - 5.0 g/dL ALK PHOS 52 34 - 122 U/L ALTv 29 5 - 50 U/L AST(SGOT) 44 (*) 13 - 40 U/L eGFR 119.9 mL/min/1.73m2 LIPASE - Normal LIPASE 66 0 - 220 U/L . Orders and Treatments: Orders Placed This Encounter Procedures Cbc with Diff Comp. Metabolic Panel (46506) Lipase Orders Placed This Encounter Medications ondansetron (ZOFRAN (PF)) injection 4 mg ketorolac (TORADOL) injection 30 mg dicyclomine 20 mg tablet ondansetron (ZOFRAN) 4 mg tablet First Provider Eval: ED Events Date/Time Event User Comments 06/25/24434 Medical Screening Begins FLIP LEVIN MD -- 06/25/24434 First Provider Evaluation FLIP LEVIN MD -- ED COURSE Diagnosis/Impression as of 06/25/24 0649 Nausea vomiting and diarrhea Gastroenteritis Procedures: Procedures MDM: Medical Decision Making Jeremias Davies is a 28 year old male who presents to the ED with N/V/D X 2 days Problems Addressed: Gastroenteritis: acute illness or injury Nausea vomiting and diarrhea: acute illness or injury Amount and/or Complexity of Data Reviewed Labs: ordered. Decision-making details documented in ED Course. Risk OTC drugs. Prescription drug management. Flowsheet Documentation: Scoring Tools: No data recorded Disposition/Condition: ED Disposition ED Disposition Disch - Home Condition Stable Comment -- Discharge Medications: Patient's Medications START taking these medications DICYCLOMINE 20 MG TABLET Take 1 tablet by mouth every 6 (six) hours as needed for Abdominal pain. ONDANSETRON (ZOFRAN) 4 MG TABLET Take 1 tablet by mouth every 8 (eight) hours as needed for Nausea and Vomiting (N/V). CONTINUE taking these medications which have NOT CHANGED ACETAMINOPHEN-CODEINE (TYLENOL-CODEINE #3) 300-30 MG TABLET Take 1 Tab by mouth every 6 (six) hours as needed for Pain unrelieved by non-narcotic analgesics. CHLORHEXIDINE (PERIDEX) 0.12 % MOUTHWASH Swish and spit out 15 mL 2 (two) times daily. METRONIDAZOLE (FLAGYL) 500 MG TABLET Take 1 Tab by mouth 2 (two) times daily. START taking Modified Medications as Prescribed No medications on file STOP taking these medications No medications on file Follow-up: Electronically signed by: Flip Levin MD 06/25/24 0634 Flip Levin MD 06/25/24 0635 Flip Levni MD 06/25/24 0649 [facility] 2023-09-08 08:25:19 No s/s of allergic reaction. Pt left ER ambulatory, no distress. [facility] 2023-09-08 08:07:05 Pt given discharge instructions on strep throat. No prescriptions given. Advised to get over the counter Cepacol. Pt waiting shot time. [facility] 2023-09-08 07:27:01 Patient states: "It started Monday last week. I was having body aches and waking up with cold chills. It started with a sore throat. I still have the sore throat like a week later. This morning I coughed up blood. I looked it up and was clearing my throat and saw the blood. I have a picture too" Tapia RN [facility] - Health 2023-09-08 07:25:00 [facility] Emergency Department Note Patient Name: Jeremias Davies Date of : 1995 27 year old male Treatment Room: [place] [address] Primary Care Physician: PATIENT DOES NOT HAVE A PCP Patient Escorted by: Self [9] Mode of Arrival: Personal means [1] EMS Treatment Prior to ED Arrival: RADIOLOGY SERVICES MANAGER treatment: None Travel and Exposure Screening: Symptoms Does patient have any of these symptoms?: (not recorded) Exposure Screening Has patient had contact with someone with a communicable disease in the last month?: (not recorded) Diseases exposed to:: (not recorded) Is Patient ?: (not recorded) Exposure Date: (not recorded) Chief Complaint: Chief Complaint Patient presents with Sore Throat Body Aches History of Present Illness: The patient presents from home for evaluation for ear pain, sore throat as well as fevers for the past several days. He denies any sick contacts. He does not smoke. No cough. He was using yvch-fye-[id number] medications to make himself feel better but he has not used anything in several days. No chest pain or shortness of breath. Here for evaluation. Past Medical History/Immunizations: History reviewed. No pertinent past medical history. Tetanus received in last 5 years: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
[2024-12-29] MEDS ORDERED: LIDOCAINE 1% 20 ML MDV ONE (02:40)
[2024-12-29] MEDS ORDERED: TDAP (DIPHTH,PERTUSS(ACELL),TET VAC) 0.5 ML VIAL IMVAC ONE (02:41)
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
--- NOTE | 2024-12-29 04:55 | EDPHYS ---
Physician Documentation [facility] Name: Sal Davies Age: 29 yrs Sex: Male : 1995 Arrival Date: 12/29/2024 Time: 01:03 Bed 18 Private MD: ED Physician Fabien Thompson HPI: 12/29 01:14 This 29 yrs old Black Male presents to ER via Unassigned with complaints of Laceration sp4 To Hand. 12/30 01:55 Patient presents with acute left hand laceration to the left fifth knuckle. sp4 Historical: - Allergies: 12/29 01:25 No Known Allergies; vc1 - Home Meds: 01:25 None [Active]; vc1 - PMHx: 01:25 Anxiety; Depression; vc1 - PSHx: 01:25 Appendectomy; Tonsillectomy; vc1 - Immunization history:: Client reports receiving the 2nd dose of the Covid vaccine, Last tetanus immunization: > 10 years ago. - Infectious Disease History:: Denies. - Social history:: Smoking status: Patient denies any tobacco usage or history of. - Family history:: not pertinent. ROS: 12/30 01:55 Constitutional: Negative for fever, chills, and weight loss, positive left hand sp4 laceration All other systems are negative, Exam: 01:55 Constitutional: This is a well developed, well nourished patient who is awake, alert, sp4 and in no acute distress. Head/Face: Normocephalic, atraumatic. Eyes: Pupils equal round and reactive to light, extra-ocular motions intact. Lids and lashes normal. Conjunctiva and sclera are not injected. Cornea within normal limits. Periorbital areas with no swelling, redness, or edema. ENT: Nares patent. No nasal discharge, no septal abnormalities noted. Tympanic membranes are normal and external auditory canals are clear. Oropharynx with no redness, swelling, or masses, exudates, or evidence of obstruction, uvula midline. Mucous membranes moist. Neck: Trachea midline, no thyromegaly or masses palpated, and no cervical lymphadenopathy. Supple, full range of motion without nuchal rigidity, or vertebral point tenderness. Chest/axilla: Normal chest wall appearance and motion. Nontender with no deformity. No lesions are appreciated. Cardiovascular: Regular rate and rhythm with a normal S1 and S2. No gallops, murmurs, or rubs. Normal PMI, no JVD. No pulse deficits. Respiratory: Lungs have equal breath sounds bilaterally, clear to auscultation and percussion. No rales, rhonchi or wheezes noted. No increased work of breathing, no retractions or nasal flaring. Abdomen/GI: Soft, with normal bowel sounds. No distension or tympany. No guarding or rebound. No evidence of tenderness throughout. Back: No spinal tenderness. No costovertebral tenderness. Skin: Warm, dry with normal turgor. Normal color with no rashes, no lesions, and no evidence of cellulitis. MS/ Extremity: Pulses equal, no cyanosis. Neurovascular intact. Full, normal range of motion. Positive small 1.5 cm laceration left small finger knuckle Neuro: Awake and alert, GCS 15, oriented to person, place, time, and situation. Cranial nerves II-XII grossly intact. Motor strength 5/5 in all extremities. Sensory grossly intact. Psych: Awake, alert, with orientation to person, place and time. Behavior, mood, and affect are within normal limits Vital Signs: 12/29 01:23 Weight 99.79 kg; Height 5 ft. 4 in. ; Pain 8/10; vc1 01:27 BP 132 / 84; Pulse 110; Resp 16; Temp 98.5; Pulse Ox 98% ; vc1 03:37 BP 127 / 89; Pulse 101; Resp 17 S; Pulse Ox 99% on R/A; lg3 05:17 BP 131 / 86; Pulse 88; Resp 16 S; Pulse Ox 98% on R/A; lg3 01:23 Body Mass Index 37.76 (99.79 kg, 162.56 cm) vc1 01:23 Pain Scale: Adult vc1 Kamaljit Coma Score: 12/30 01:55 Eye Response: spontaneous(4). Motor Response: obeys commands(6). Verbal Response: sp4 oriented(5). Total: 15. Laceration: 01:55 Wound Repair of 1.5cm ( 0.6in ) subcutaneous laceration to dorsal aspect of proximal sp4 phalanx of left little finger and left arm. Linear shaped.. Minimal bleeding noted.. Distal neuro/vascular/tendon intact. Anesthesia: Wound infiltrated with 6 mls of 1% lidocaine. Wound prep: Moderate cleansing by me, Copious irrigation. Skin closed with 6 4-0 Prolene using interrupted sutures and sterile technique. Dressed with Neosporin, 4x4's, Kerlix, non-adherent dressing. Patient tolerated fair. MDM: 12/29 01:19 Medical Screening Exam initiated sp4 12/30 01:58 Differential diagnosis: superficial laceration, tendon injury, vascular injury. Data sp4 reviewed: vital signs, nurses notes. Consideration of Admission/Observation Escalation of care including admission/observation considered. ED course: Patient stable for discharge home after laceration repair.. 12/29 01:42 Order name: Dressing - Wound; Complete Time: 02:42 sp4 12/29 01:42 Order name: Gloves, Sterile; Complete Time: 02:42 sp4 12/29 01:42 Order name: Setup Suture Tray; Complete Time: 02:42 sp4 Administered Medications: 12/29 02:42 Drug: Boostrix Tdap IM 0.5 ml IM once; as a single dose Route: IM; Site: right deltoid; lg3 02:42 Follow up: Response: (VIS) Vaccine information sheet provided today. Questions and/or lg3 concerns addressed. VIS edition date: Apr 16, 2021.; No adverse reaction 04:54 Drug: Lidocaine Infiltration (1 %) 20 ml 20 ml Infiltration once; to bedside Volume: 20 lg3 ml; Route: Infiltration; 05:16 Drug: Cephalexin PO 500 mg PO once Route: PO; lg3 05:17 Follow up: Response: No adverse reaction; Medication administered at discharge. lg3 05:16 Drug: Trimethoprim-Sulfamethoxazole PO (160 mg-800 mg (DS) 1 tablet PO once Route: PO; lg3 05:17 Follow up: Response: No adverse reaction; Medication administered at discharge. lg3 05:16 Drug: Ibuprofen PO 800 mg PO once Route: PO; lg3 05:17 Follow up: Response: No adverse reaction; Medication administered at discharge. lg3 05:16 Drug: Ondansetron PO 4 mg PO once Route: PO; lg3 05:17 Follow up: Response: No adverse reaction; Medication administered at discharge. lg3 Disposition: 12/30 01:59 Chart complete. sp4 Disposition Summary: 12/29/24 04:55 Discharge Ordered Notes: Location: Home sp4 Problem: new sp4 Symptoms: have improved sp4 Condition: Stable sp4 Diagnosis - Laceration without foreign body of left hand, initial encounter sp4 - Left hand laceration fifth digit knuckle, subcutaneous, initial encounter sp4 Followup: sp4 - With: Private Physician - When: Suture removal after 20 days - Reason: Recheck today's complaints Discharge Instructions: - Discharge Summary Sheet sp4 - Laceration Care, Adult sp4 Forms: - Patient Portal Instructions sp4 Prescriptions: - Cephalexin 500 mg Oral Capsule - take 1 capsule ORAL route every 12 hours for 10 days; 20 capsule; Refills: 0, sp4 Product Selection Permitted - Bactrim DS 800-160 mg Oral Tablet - take 1 tablet ORAL route every 12 hours for 10 days; 20 tablet; Refills: 0, sp4 Product Selection Permitted Signatures: Alix Steinberg RN RN lg3 Sonam Boone RN RN vc1 Fabien Thompson MD MD sp4
[2024-12-29] MEDS ORDERED: SMZ./TMP. 800/160 MG TABLET ONE (04:57)
[2024-12-29] MEDS ORDERED: ONDANSETRON 4 MG (ODT) TAB ONE (04:57)
[2024-12-29] MEDS ORDERED: IBUPROFEN 400 MG TAB ONE (04:57)
[2024-12-29] MEDS ORDERED: IBUPROFEN 200 MG TAB PO ONE (04:57)
[2024-12-29] MEDS ORDERED: CEPHALEXIN 250 MG CAP ONE (04:57)
[2024-12-29 05:27] VITALS: TEMP 98.5
[2024-12-29 05:29] VITALS: BP 131/86; O2SAT 98
== END 2024-12-29 05:19 | disposition home or self-care (01) ==
LOC: ER 01:03
DX: S61.217A Laceration without foreign body of left little finger without damage to nail, initial encounter (principal); S61.412A Laceration without foreign body of left hand, initial encounter
CPT/HCPCS: 12001; 90715; 96372; 99284; J2003; Q0162